=== PATIENT | female | born 1970 | race Caucasian/White ===

== ENCOUNTER → 2016-09-11 | Outpatient (CLI) | payer BC ==
[2016-09-11 14:44] LABS: BASOPHILS # (AUTO) 0.05 10*3/UL; BASOPHILS % (AUTO) 0.6 % (0-1)
[2016-09-11 14:47] LABS: BLOOD UREA NITROGEN 4 mg/dL (7-22); CALCIUM 9.5 mg/dL (8.7-10.7); EST GLOMERULAR FILTRATION > 60 (>60 ml/min/1.73m(2)); SERUM ALBUMIN 3.9 g/dL (3.5-4.8)
[2016-09-11 14:57] LABS: EOSINOPHILS # (AUTO) 0.04 10*3/UL; EOSINOPHILS % (AUTO) 0.5 % (0-8); HEMATOCRIT 41.6 % (37.0-47.0); HEMOGLOBIN 13.1 g/dL (12.0-16.0); LYMPHOCYTES # (AUTO) 1.63 10*3/uL; MEAN CORPUSCULAR HGB CONC 31.5 g/dL (33-37); MEAN CORPUSCULAR VOLUME 88.9 FL (81-99); MEAN PLATELET VOLUME 10.7 FL (7.4-12.2); MONOCYTES # (AUTO) 0.62 10*3/UL (0.3-0.8); NEUTROPHILS # (AUTO) 5.36 10*3/UL; NEUTROPHILS % (AUTO) 69.5 % (50-80); RED BLOOD COUNT 4.68 10^6/uL (4.20-5.40)
[2016-09-11 15:00] LABS: PLATELET MORPHOLOGY COMMENT NORMAL MORPHOLOGY (NORM); RBC MORPHOLOGY COMMENT NORMAL MORPHOLOGY (NORM); WBC MORPHOLOGY COMMENT NORMAL MORPHOLOGY (NORM)
== END ==
LOC: LAB 10:06
PROVIDERS: ATTEND Physician Assistant Medical
DX: Z01.812 Encounter for preprocedural laboratory examination (principal); M25.511 Pain in right shoulder; E03.9 Hypothyroidism, unspecified
CPT/HCPCS: 80053; 84443; 85025; 85610; 85730; 87641

== ENCOUNTER → 2016-10-23 | Outpatient (CLI) | payer BC ==
--- NOTE | 2016-10-24 10:30 | DI ---
US UP/LOW EXT VEINS U/L OR LTD,10/23/2016 4:35 PM: Clinical History: Right calf pain. Previous Exam: None at this facility. Findings: Multiple grayscale and color Doppler sonographic images are obtained of the deep veins of the right l ower extremity, and demonstrate complete coaptation upon graded compression throughout. There is normal coaptation upon graded compression. There is normal respiratory variation and augmentation. There is no evidence of echogenic thrombus. Impression: No evidence of deep venous thrombosis of the right lower extremity.
== END ==
LOC: US 16:34
PROVIDERS: ATTEND Physician Assistant Medical
DX: M79.661 Pain in right lower leg (principal)
CPT/HCPCS: 93971

== ENCOUNTER 2017-08-08 08:29 | Inpatient (IN) ==
[~2017-08-08 08:29] MED LIST: CefOXitin Inj 2 GM in Sodium Chloride 0.9% 100 ML IV ONE; LIDOCAINE W/ SODIUM BICARB 0.5 ML SYR ONE; LIDOCAINE W/ SODIUM BICARB 0.5 ML SYR SUBD ONE; Lactated Ringers 1,000 ML PRIMARY IV ONE; Sodium Chloride 0.9% 100 ML IV ONE
[2017-08-08] MEDS: Lactated Ringers 1,000 ML PRIMARY IV SCH ×2 (08:54→14:53)
[2017-08-08] MEDS ORDERED: PROPOFOL 10 MG/1 ML (200 MG/20 ML) VIAL IV ONE (09:17)
[2017-08-08] MEDS ORDERED: MIDAZOLAM 5 MG/1 ML ONE (09:18)
[2017-08-08] MEDS ORDERED: SCOPOLAMINE HYDROBROMIDE 1.5 MG - 1 EACH PATCH TRANSDERM ONE (09:18)
[2017-08-08] MEDS ORDERED: ONDANSETRON 4 MG/2 ML VIAL ONE (09:18)
[2017-08-08] MEDS ORDERED: KETAMINE 100 MG/1 ML - 5 ML ONE (09:18)
[2017-08-08] MEDS ORDERED: SUFENTANIL 50 MCG/1 ML ONE ×2 (09:18→11:25)
[2017-08-08] MEDS ORDERED: fentaNYL Inj 250 MCG/5 ML VIAL ONE (09:18)
[2017-08-08] MEDS ORDERED: ROCURONIUM 10 MG/1 ML - 5 ML VIAL IVP ONE ×2 (09:19→12:01)
[2017-08-08] MEDS ORDERED: DEXAMETHASONE PF 10 MG/1 ML VIAL ONE (09:19)
[2017-08-08] MEDS ORDERED: LIDOCAINE MPF 2% - 5 ML (20 MG/1 ML) ONE ×2 (09:21→13:05)
[2017-08-08] MEDS ORDERED: Sodium Chloride 0.9% vial 10 ML ONE (09:22)
[2017-08-08 09:26] LABS: Hematocrit [HCT] 38.8 % (37.0-47.0); Hemoglobin [HGB] 12.5 g/dL (12.0-16.0)
[2017-08-08 09:30] LABS: BILIRUBIN,URINE SMALL (NEG); CLARITY,URINE CLEAR (CLEAR); COLOR,URINE YELLOW (Y); GLUCOSE, URINE (UA) NEGATIVE (NEG); OCCULT BLOOD,URINE NEGATIVE (NEG); PH,URINE 6.5 (5.0-8.5); PROTEIN,URINE TRACE mg/dl (NEG); UROBILINOGEN,URINE 0.2 EU/dL (0.2)
[2017-08-08 09:33] LABS: URINE SAMPLE TYPE CLEAN CATCH URINE
[2017-08-08] MEDS ORDERED: Acetaminophen 1000mg Inj 1,000 MG/100 ML VIAL IV ONE (10:02)
[2017-08-08] MEDS ORDERED: IPRATROPIUM/ALBUTEROL SULFATE 3 ML NEB NEB ONE ×2 (10:02→10:05)
[2017-08-08] MEDS ORDERED: BUPivacaine Inj 0.25% PF - 10ml vial ONE (10:04)
[2017-08-08] MEDS ORDERED: Opium-Belladonna 60-16.2mg 1 EACH SUPP.RECT RECTAL ONE ×2 (10:04→11:45)
[2017-08-08] MEDS ORDERED: LIDOCAINE HCL 2 % 10 ML JELLY URO-JECT TOPICAL ONE ×2 (10:04→10:30)
[2017-08-08] MEDS ORDERED: SUGAMMADEX SODIUM 200 MG/2 ML VIAL IV ONE (11:54)
[2017-08-08] MEDS ORDERED: KETOROLAC 30 MG/1 ML VIAL ONE (12:05)
[2017-08-08] MEDS ORDERED: Lactated Ringers 1,000 ML PRIMARY IV ONE ×2 (12:36→14:21)
--- NOTE | 2017-08-08 13:38 | OB.OP.NOTE ---
Operative Report Surgeon: Basia Contact Officer: Karel Delgado MD Anesthesia Type: General Anesthesia Provider: Pablo Lopez CRNA Surgery Date: 08/08/17 Preoperative Diagnosis: MMR/Dysmenorrhea Post Endometrial Ablation Postoperative Diagnosis: Same with Dense Abdominal Adhesions Involving Small Bowel, Small Bowel Perforation Procedure: da Lee Hysterectomy/Bilateral Salpingectomy/Cystoscopy/Exploratory Laparotomy with Small Bowel Resection Estimated Blood Loss (mL): 40 Fluids: 3600 ml Complications: Small bowel perforation with the camera port trocar. Findings at Surgery: Normal appearing uterus. Tubes s/p BTL. Normal Ovaries. At cystoscopy, both ureters were visualized ejecting urine, indicating ureteral patency and function. The bladder was intact. Dense adhesions of small bowel and omentum to the anterior abdominal wall were encountered at the site of the camera port trocar. These were taken down laparoscopically at the start of the case, but adequate visualization of the affected bowel could not be obtained via laparoscopy. Mini laparotomy was performed at the conclusion of the hysterectomy to adequately assess the bowel for bowel injury. A through and through perforation of the small bowel was noted. Dr. Santamaria was consulted , and this portion of bowel was excised with primary anastomosis of the small bowel. Indications for the Procedure: MMR/Dysmenorrhea post ablation. Description of Procedure: See dictated operative report. Plan: Admit to inpatient unit for post op care.
[2017-08-08] MEDS ORDERED: Prochlorperazine Edisylate Inj 10mg/2ml vial IVP PRN (14:08)
[2017-08-08] MEDS ORDERED: NORMAL SALINE 10 ML SYRINGE FLUSH IVP PRN (14:08)
[2017-08-08] MEDS ORDERED: HYDROmorphone 2 MG/1 ML IVP PRN (14:08)
--- NOTE | 2017-08-08 14:11 | CRNA.PROGR ---
Anesthesia Recovery Phase I - Post Anesthesia Evaluation Patient's Condition on Arrival in Phase I: Stable Patient's Condition on Arrival in Phase II: Stable Pain Level: 0
--- NOTE | 2017-08-08 14:20 | CRNA.PROGR ---
Anesthesia Time - - Start date: 08/08/17 End date: 08/08/17 - Procedure/Recovery Time Anesthesia : Time In: 10:15 Anesthesia : Time Out: 14:07 Anesthesia : Total Time: 232 - Total Anesthesia Time Total Anesthesia Time (minutes): 232 - Other Weight: 112.945 kg Height: 5 ft 8 in Body Mass Index (BMI): 37.8 Physical Status: P2 Anesthesia Type: General Anesthesia : ET
--- NOTE | 2017-08-08 14:28 | DI ---
LAN, 08/08/2017 1:30 PM: Clinical History: Hysterectomy with subsequent bowel repair. No instrument count was obtained prior t o the bowel repair. Previous Exam: None at this facility. The patient is morbidly obese. This detracts from the overall quality and significantly limits the di agnostic quality of the exam with respect to fine detail structures. 2 films were initially obtained in the operating room and those films did not include the extreme left lateral margin of the pelvis. In addition, there was a radiopaque artifact over the epigastric region on one film. Therefore repeat views were performed. There are no soft tissue or bony abnormalities. A laparoscopic gastric band device is present. Bowel gas pattern, psoas margins, and flank stripes are normal. There is no free air or fluid. There are no abnormal radiodensities or evidence of retained metallic surgical instruments or sponges or needles. Reading: There is no evidence of a retained surgical instrument or sponge or needle.
--- NOTE | 2017-08-08 14:30 | GEN.OPNOTE ---
Operative Note Surgery Date: 08/08/17 Preoperative Diagnosis: Perforated bowel Postoperative Diagnosis: Perforated small bowel Procedure: Small bowel resection with primary anastomosis Surgeon: Edwin Santamaria MD Industrial Machinery Mechanic: Karel Delgado MD, Jeremy Flor MD Anesthesia Provider: Pablo Lopez CRNA Anesthesia Type: General Pathology: Small bowel sent Indications: This is a 38-year-old female who I been asked to see intraoperatively because of a small bowel perforation. Patient had dense adhesions of the small bowel up to the abdominal wall. The trocar was inadvertently placed into the small bowel with a through and through injury Findings: Through and through injury to the small bowel Operative Summary: I was asked to come and see the patient because of a small bowel perforation. Patient was having a da Lee hysterectomy. Patient had some dense adhesions of the small bowel up to the abdominal wall at the trocar site. Dr. Sorto was concerned about having an injury. He did convert to a small minilaparotomy. At this point is able to find a loop of bowel that had a through and through injury. Initially I was able to close him with interrupted 2-0 Vicryl sutures. At this point she had adhesions I gently took took down with Metzenbaum scissors. This freed up the bowel get a better look at it. The mesenteric was a little beat up. The suture lines were crossing each other and therefore was unsure whether this be an adequate primary repair. I decided do a small bowel resection of this point. I then made a small mesenteric defect and placed the TLC stapler across the best dividing the proximal and distal small bowel. I then clamped divided the mesentery and tied off with 3-0 Vicryl suture. I opened the antimesenteric border of the 2 limbs of small bowel. Placed the TLC stapler and and then fire fired it. The anastomosis. Completed the anastomosis with the TX a 60 stapler. Closed the mesenteric defect with 2-0 Vicryl simple sutures. Milk small bowel contents across anastomosis is no evidence of leak. We irrigated until clear. We inspected there is no active bleeding. At this point Dr. Sorto and Dr. Delgado close abdominal wall. Please see Dr. Sorto's operative notes for details. Procedure Codes - Surgical Procedures Primary Surgical Procedure: 32595 : Enterectomy, Resection Sm Bowel
[2017-08-08] MEDS ORDERED: HYDROmorphone 2 MG/1 ML ONE (14:45)
[2017-08-08] MEDS: CefOXitin Inj 1 GM in Sodium Chloride 0.9% 100 ML IV SCH ×2 (16:07→21:26)
[2017-08-08] MEDS: KETOROLAC 15 MG/1 ML VIAL IVP PRN ×2 (16:08→21:40)
[2017-08-08] MEDS: oxyCODONE-ACETAMINOPHEN 5-325 TAB PO PRN ×2 (18:58→23:01)
[2017-08-08] MEDS ORDERED: Sodium Chloride 0.9% 200 ML IV ONE (21:18)
[2017-08-08] MEDS: DOCUSATE 100 MG CAPSULE PO SCH (21:25)
[2017-08-09] MEDS: IBUPROFEN 800 MG TABLET PO PRN (02:16)
[2017-08-09] MEDS: oxyCODONE-ACETAMINOPHEN 5-325 TAB PO PRN ×2 (03:20→06:51)
[2017-08-09] MEDS: CefOXitin Inj 1 GM in Sodium Chloride 0.9% 100 ML IV SCH ×2 (03:20→08:28)
[2017-08-09] MEDS: KETOROLAC 15 MG/1 ML VIAL IVP PRN (04:09)
[2017-08-09 04:52] LABS: BASOPHILS # (AUTO) 0 10*3/UL; BASOPHILS % (AUTO) 0 % (0-1); EOSINOPHILS # (AUTO) 0 10*3/UL; EOSINOPHILS % (AUTO) 0 % (0-8); Hematocrit [HCT] 37.9 % (37.0-47.0); Hemoglobin [HGB] 12.2 g/dL (12.0-16.0); LYMPHOCYTES # (AUTO) 0.93 10*3/uL; MEAN CORPUSCULAR HGB CONC 32.2 g/dL (33-37); MEAN CORPUSCULAR VOLUME 87.1 FL (81-99); MEAN PLATELET VOLUME 10.6 FL (7.4-12.2); MONOCYTES # (AUTO) 0.72 10*3/UL (0.3-0.8); MONOCYTES % (AUTO) 7.4 % (5-15); NEUTROPHILS # (AUTO) 8.06 10*3/UL; NEUTROPHILS % (AUTO) 82.9 % (50-80); RED BLOOD COUNT 4.35 10^6/uL (4.20-5.40)
[2017-08-09 05:01] LABS: PLATELET MORPHOLOGY COMMENT NORMAL MORPHOLOGY (NORM); RBC MORPHOLOGY COMMENT NORMAL MORPHOLOGY (NORM); WBC MORPHOLOGY COMMENT NORMAL MORPHOLOGY (NORM)
[2017-08-09] MEDS: Ondansetron ODT Tab 8 MG TAB PO PRN (07:02)
--- NOTE | 2017-08-09 07:54 | PDOC(PROG) ---
Subjective Post Op Day: 1 Pain Management: PO Smith Catheter: Yes Flatus: No Diet: Clear Liquids Ambulating: Yes Concerns / Additional Information: The patient is feeling well this AM. No flatus yet. She is ambulating well. Waiting for smith to be removed. Pain control is marginal with PO, but pt. does not want a BAND LINING BANDER. White count and H/H normal this AM. AVSS. Assesstment / Plan Assessment / Plan: POD 1 s/p robotic hyst/BSO with small bowel perforation and resection. Awaiting return of bowel function. Ambulate aggressively.
[2017-08-09] MEDS: DOCUSATE 100 MG CAPSULE PO SCH ×2 (08:13→21:11)
[2017-08-09] MEDS ORDERED: NALOXONE 0.4 MG/1 ML VIAL IVP PRN (09:22)
[2017-08-09] MEDS: Sodium Chloride 0.9% 1,000 ML PRIMARY IV SCH (10:00)
[2017-08-09] MEDS: HYDROmorphone/PF/PCA 9 MG/30 ML IV SCH (10:01)
--- NOTE | 2017-08-09 12:11 | PDOC(PROG) ---
Subjective Post Op Day: postop day 1 Pain Management: Peripheral INSTRUMENT DESIGNER Veliz Catheter: No Flatus: No Diet: Clear Liquids Date and Time of Service: 08/09/2017 at 12:15 Interval History: Patient states that she is feeling okay had a rough night last night. She need to be placed on a INSTRUMENT DESIGNER pump. She is not passing flatus but tolerating liquid diet. She states she is hungry Objective : Data - Labs CBC and BMP: 08/09/17 04:10 - Vital Signs Vital Signs and I&O: Vital Signs - Last Taken Temperature 97 F 08/09/17 09:00 Pulse Rate 72 08/09/17 09:00 Respiratory Rate 16 08/09/17 11:00 Blood Pressure 105/62 08/09/17 09:00 Pulse Ox 99 08/09/17 11:00 Intake and Output (24hr x 4 totals) 08/07/17 08/08/17 08/09/17 08/10/17 05:59 05:59 05:59 05:59 Intake Total 7985 / 7985 148 / 148 Output Total 2890 / 2890 500 / 500 Balance 5095 / 5095 -352 / -352 Objective : Exam - General General Appearance: No Acute Distress, Cooperative - Eye Eye Exam: Normal Appearance, PERRL - Respiratory Respiratory Exam: Clear to Auscultation - Bilaterally, Breathing Non Labored - Cardiovascular Cardiovascular Exam: RRR - GI/Abdominal GI/Abdominal Exam: Non Distended (Patient is incisional pain. I do not hear any bowel sounds on today's exam), Soft Assessment and Plan - Patient Problems (1) Small bowel perforation Current Visit: Yes Status: Acute Code(s): K63.1 - Perforation of intestine ( nontraumatic) - Assessment / Plan Additional Assessment/Plan Details: Overall the patient is doing very well. Labs all look real good. I do not think she needs be on any more antibiotics. Continue the INSTRUMENT DESIGNER pump. Stay on a clear liquid diet. Will give her an incentive spirometer
[2017-08-09] MEDS ORDERED: ALBUTEROL SULFATE 2.5 MG/3 ML NEB PRN (19:00)
[2017-08-10] MEDS: Ondansetron ODT Tab 8 MG TAB PO PRN ×2 (02:05→10:44)
[2017-08-10] MEDS: HYDROmorphone/PF/PCA 9 MG/30 ML IV SCH (02:05)
[2017-08-10] MEDS: Famotidine Inj 20 MG in Normal Saline Flush 10 ML IVP SCH (09:01)
[2017-08-10] MEDS: DOCUSATE 100 MG CAPSULE PO SCH ×2 (09:01→21:31)
--- NOTE | 2017-08-10 09:14 | PDOC(PROG) ---
Subjective Post Op Day: 2 Pain Management: Peripheral HEALTH SAFETY ENGINEER Veliz Catheter: No Flatus: No Diet: Clear Liquids Ambulating: Yes Concerns / Additional Information: The patient is doing much better with her pain control. Encouraged ambulation as much as possible. Still no flatus, though she does feel rumblings. No vaginal bleeding. Objective - General General Appearance: POSITIVE: No Acute Distress Other General Details: AVSS - Abdomen Bowel Sounds: Present, Hypoactive Abdominal Wound Assessment: [place] Dressing Assesstment / Plan Assessment / Plan: POD 2. Awaiting return of bowel function. Ambulate aggressively and up to chair as much as possible. Diet per Dr. Santamaria.
--- NOTE | 2017-08-10 10:39 | PDOC(PROG) ---
Subjective Post Op Day: postop day 2 Pain Management: Peripheral FINE SANDER Flatus: No Diet: Clear Liquids Date and Time of Service: 08/10/2017 at 1040 Interval History: Patient states that she is doing fine having no complaints. She is tolerating clear liquids no nausea. She states she feels her tummy rumbling but that has not passed gas yet. She did take a shower today Objective : Data - Labs CBC and BMP: 08/09/17 04:10 - Vital Signs Vital Signs and I&O: Vital Signs - Last Taken Temperature 97 F 08/10/17 07:41 Pulse Rate 95 08/10/17 07:41 Respiratory Rate 15 08/10/17 09:00 Blood Pressure 126/78 08/10/17 07:41 Pulse Ox 91 08/10/17 07:41 Intake and Output (24hr x 4 totals) 08/08/17 08/09/17 08/10/17 08/11/17 05:59 05:59 05:59 05:59 Intake Total 7985 / 7985 1079 / 1079 940 / 940 Output Total 2890 / 2890 1900 / 1900 Balance 5095 / 5095 -821 / -821 940 / 940 Objective : Exam - General General Appearance: No Acute Distress, Cooperative - Respiratory Respiratory Exam: Clear to Auscultation - Bilaterally, Breathing Non Labored - Cardiovascular Cardiovascular Exam: RRR - GI/Abdominal GI/Abdominal Exam: Non Tender, Non Distended, Soft, Hypoactive Bowel Sounds Assessment and Plan - Patient Problems (1) Small bowel perforation Current Visit: Yes Status: Acute Code(s): K63.1 - Perforation of intestine ( nontraumatic) - Assessment / Plan Additional Assessment/Plan Details: At this point do think is okay to advance diet to full liquid diet. Will try to get her on oral pain medication. Patient normally takes Percocet 's. Will change his pain medication order to reflect this.
[2017-08-10] MEDS: KETOROLAC 15 MG/1 ML VIAL IVP PRN ×2 (10:44→17:39)
[2017-08-10] MEDS: oxyCODONE/APAP 10/325 Tab 1 EACH TAB PO PRN ×4 (10:58→23:50)
[2017-08-10] MEDS: Sodium Chloride 0.9% 1,000 ML PRIMARY IV SCH (13:13)
[2017-08-10] MEDS: NORMAL SALINE 10 ML SYRINGE FLUSH IVP PRN (17:39)
[2017-08-10] MEDS: HYDROmorphone 2 MG/1 ML IVP PRN ×3 (18:14→23:54)
[2017-08-11] MEDS: oxyCODONE/APAP 10/325 Tab 1 EACH TAB PO PRN ×6 (03:38→23:48)
--- NOTE | 2017-08-11 09:08 | PDOC(PROG) ---
Subjective Post Op Day: 3 Pain Management: PO Veliz Catheter: No Flatus: No Diet: Full Liquid Ambulating: Yes Concerns / Additional Information: Pt. is doing well from a pain standpoint on PO meds. She c/o night sweats last night. Discussed hypoestrogen state and offered ERT. She would like this. Still no flatus, but no N/V either. Pt. had an episode of dizziness in the shower this morning, but has been ambulating well. Objective - General General Appearance: POSITIVE: No Acute Distress - Abdomen Bowel Sounds: Hypoactive Abdominal Wound Assessment: Well Approximated, Alyssa Intact, Open to air Assesstment / Plan Assessment / Plan: POD 3. Still awaiting return of bowel function. Start ERT. Continue ambulating aggressively.
[2017-08-11] MEDS: Famotidine Inj 20 MG in Normal Saline Flush 10 ML IVP SCH (09:15)
[2017-08-11] MEDS: DOCUSATE 100 MG CAPSULE PO SCH ×2 (09:15→20:58)
[2017-08-11] MEDS: ESTROGENS,CONJUGATED 0.625 MG TABLET PO SCH (10:23)
--- NOTE | 2017-08-11 10:32 | PDOC(PROG) ---
Subjective Post Op Day: postop day 3 Flatus: No Diet: full liquid Date and Time of Service: 08/11/2017 at 10:30 Interval History: Patient states that she is doing well she is not nauseated has a little bit of heartburn is on Pepcid. She hasn't passed any flatus yet. Patient had some abdominal pain last night on the left lower quadrant but this seems to have resolved. Patient is being managed currently today just on oxycodone/ acetaminophen Objective : Data - Labs CBC and BMP: 08/09/17 04:10 - Vital Signs Vital Signs and I&O: Vital Signs - Last Taken Temperature 97.2 F 08/11/17 07:25 Pulse Rate 68 08/11/17 07:25 Respiratory Rate 19 08/11/17 07:25 Blood Pressure 111/69 08/11/17 07:25 Pulse Ox 93 08/11/17 07:25 Intake and Output (24hr x 4 totals) 08/09/17 08/10/17 08/11/17 08/12/17 05:59 05:59 05:59 05:59 Intake Total 7985 / 7985 1079 / 1079 2780 / 2780 950 / 950 Output Total 2890 / 2890 1900 / 1900 450 / 450 Balance 5095 / 5095 -821 / -821 2330 / 2330 950 / 950 Objective : Exam - General General Appearance: No Acute Distress, Cooperative - Respiratory Respiratory Exam: Clear to Auscultation - Bilaterally, Breathing Non Labored - Cardiovascular Cardiovascular Exam: RRR - GI/Abdominal GI/Abdominal Exam: Non Tender, Non Distended, Soft, Hypoactive Bowel Sounds Assessment and Plan - Patient Problems (1) Small bowel perforation Current Visit: Yes Status: Acute Code(s): K63.1 - Perforation of intestine ( nontraumatic) - Assessment / Plan Additional Assessment/Plan Details: Patient is tolerating full liquid diet therefore we'll keep her on a. Still awaiting return of bowel function. I do believe she still has her ileus: On. Will check a CBC basic metabolic panel and magnesium today. Will get flatplate and upright of the abdomen in the morning.
[2017-08-11 14:26] LABS: BASOPHILS # (AUTO) 0.02 10*3/UL; BASOPHILS % (AUTO) 0.1 % (0-1); EOSINOPHILS # (AUTO) 0.01 10*3/UL; EOSINOPHILS % (AUTO) 0.1 % (0-8); Hematocrit [HCT] 46.1 % (37.0-47.0); Hemoglobin [HGB] 15.3 g/dL (12.0-16.0); MEAN CORPUSCULAR HGB CONC 33.2 g/dL (33-37); MEAN CORPUSCULAR VOLUME 84.4 FL (81-99); MEAN PLATELET VOLUME 10.3 FL (7.4-12.2); MONOCYTES # (AUTO) 1.18 10*3/UL (0.3-0.8); MONOCYTES % (AUTO) 8.6 % (5-15); NEUTROPHILS # (AUTO) 11.65 10*3/UL; NEUTROPHILS % (AUTO) 84.5 % (50-80); RED BLOOD COUNT 5.46 10^6/uL (4.20-5.40)
[2017-08-11 14:49] LABS: PLATELET MORPHOLOGY COMMENT NORMAL MORPHOLOGY (NORM); RBC MORPHOLOGY COMMENT NORMAL MORPHOLOGY (NORM); WBC MORPHOLOGY COMMENT SEE COMMENTS (NORM)
[2017-08-11] MEDS: NORMAL SALINE 10 ML SYRINGE FLUSH IVP PRN (17:54)
[2017-08-11] MEDS: HYDROmorphone 2 MG/1 ML IVP PRN (17:55)
[2017-08-11] MEDS: MAG HYDROX/AL HYDROX/SIMETH 30 ML SUSP PO PRN (19:49)
[2017-08-11] MEDS ORDERED: Magnesium Sulfate 1gm (Premix) 1 GM/100 ML BAG IV ONE (20:12)
[2017-08-12] MEDS: oxyCODONE/APAP 10/325 Tab 1 EACH TAB PO PRN ×4 (04:04→20:52)
[2017-08-12 05:22] LABS: Hematocrit [HCT] 43.7 % (37.0-47.0); Hemoglobin [HGB] 14.8 g/dL (12.0-16.0); MEAN CORPUSCULAR HEMOGLOBIN 28.1 PG (27-31); MEAN CORPUSCULAR HGB CONC 33.9 g/dL (33-37); MEAN CORPUSCULAR VOLUME 83.1 FL (81-99); MEAN PLATELET VOLUME 10.4 FL (7.4-12.2); RED BLOOD COUNT 5.26 10^6/uL (4.20-5.40)
[2017-08-12 05:39] LABS: BAND NEUTROPHILS % 20 % (0-10); BASOPHILS % (MANUAL) 0 % (0-1); EOSINOPHILS % (MANUAL) 1 % (0-8); MONOCYTES % (MANUAL) 7 % (0-12); NEUTROPHILS % (MANUAL) 68 % (50-80); PLATELET MORPHOLOGY COMMENT NORMAL MORPHOLOGY (NORM); RBC MORPHOLOGY COMMENT NORMAL MORPHOLOGY (NORM); WBC MORPHOLOGY COMMENT NORMAL MORPHOLOGY (NORM)
[2017-08-12] MEDS: FAMOTIDINE 20 MG TABLET PO SCH (08:44)
[2017-08-12] MEDS: IBUPROFEN 800 MG TABLET PO PRN (08:45)
[2017-08-12] MEDS: DOCUSATE 100 MG CAPSULE PO SCH ×2 (08:45→20:52)
[2017-08-12] MEDS: ESTROGENS,CONJUGATED 0.625 MG TABLET PO SCH (08:45)
--- NOTE | 2017-08-12 08:46 | DI ---
CHEST X-RAY WITH ABDOMINAL SERIES, 08/12/2017 7:00 AM : Clinical History: Postoperative ileus. PA CHEST X-RAY: Previous Exam: None at this facility. On this view, the patient took a very shallow inspiration. There is no acute soft tissue or bony abno rmality. There is free air under both diaphragms. Heart size is normal. There is minimal bibasilar at electasis. Mediastinal structures are normal. There are no pulmonary nodules. Reading: There is free air under the diaphragms, presumably related to the recent abdominal surgery. ABDOMINAL SERIES: Previous Exam: None at this facility. KUB and upright abdomen films are submitted. The patient is status post laparoscopic gastric banding. Bowel gas pattern, psoas margins, and flank stripes are normal. There is free air under the diaphrag ms. There are no abnormal radiodensities. Readin. There is free air under the diaphragms presumably related to the recent surgery. Bowel gas patter n is normal. 2. Shallow inspiratory effort on the chest x-ray with minimal bibasilar atelectasis.
--- NOTE | 2017-08-12 08:50 | PDOC(PROG) ---
Subjective Post Op Day: po 4 Pain Management: PO Veliz Catheter: No Flatus: No Diet: full Date and Time of Service: 08/12/2017 Interval History: Patient states that she says abdominal pain. This is not a definite it's ever been better. Objective : Data - Labs CBC and BMP: 08/12/17 04:08 08/11/17 14:00 - Vital Signs Vital Signs and I&O: Vital Signs - Last Taken Temperature 97.5 F 08/12/17 08:17 Pulse Rate 83 08/12/17 08:17 Respiratory Rate 18 08/12/17 08:17 Blood Pressure 119/74 08/12/17 08:17 Pulse Ox 91 08/12/17 08:17 Intake and Output (24hr x 4 totals) 08/10/17 08/11/17 08/12/17 08/13/17 05:59 05:59 05:59 05:59 Intake Total 1079 / 1079 2780 / 2780 2550 / 2550 Output Total 1900 / 1900 450 / 450 325 / 325 Balance -821 / -821 2330 / 2330 2225 / 2225 Objective : Exam - General General Appearance: No Acute Distress, Cooperative - Respiratory Respiratory Exam: Clear to Auscultation - Bilaterally - GI/Abdominal GI/Abdominal Exam: Normal Bowel Sounds, Soft Additional GI/Abdominal Exam Details: Patient has a has tenderness on the left and right side but no rebound abdomen is soft Assessment and Plan - Patient Problems (1) Small bowel perforation Current Visit: Yes Status: Acute Code(s): K63.1 - Perforation of intestine ( nontraumatic) - Assessment / Plan Additional Assessment/Plan Details: X-rays show some free air but questions this free air from the surgery. Her white count continues increased along with her platelets and also the hemoglobin has increased. Question patient remains afebrile. She does have periods of tachycardic though. Currently is regular rhythm now. We'll continue to watch and monitor.
[2017-08-12] MEDS ORDERED: ESTROGENS,CONJUGATED 0.625 MG TABLET PO SCH (09:00)
[2017-08-12] MEDS ORDERED: CALCIUM CARBONATE 500 MG (TUMS) CHEWABLE TABLET PO PRN (12:55)
[2017-08-12] MEDS: MAG HYDROX/AL HYDROX/SIMETH 30 ML SUSP PO PRN (12:55)
[2017-08-12] MEDS: Ertapenem Inj 1 GM in Sodium Chloride 0.9% 100 ML IV SCH (15:22)
[2017-08-13] MEDS: oxyCODONE/APAP 10/325 Tab 1 EACH TAB PO PRN ×4 (02:14→19:27)
--- NOTE | 2017-08-13 08:06 | DI ---
CHEST X-RAY WITH ABDOMINAL SERIES, 08/13/2017 7:00 AM : Clinical History: Postoperative ileus. PA CHEST X-RAY: Previous Exam: 08/13/2017. The amount of free air under both diaphragms is unchanged from the prior exam. Heart size is normal. There is minimal atelectasis in the right lower lobe. Reading: There is free air under both diaphragms. The chest x-ray itself is unremarkable. ABDOMINAL SERIES: Previous Exam: 08/12/2017. KUB and upright abdomen films are submitted. As noted above, the amount of free air under the diaphra gms is unchanged from the prior exam. There is less stool in the descending colon than on the prior e xam and this would indicate the patient has had a bowel movement. Gas is present in both large and sm all bowel similar to the previous exam, but without evidence of an obstruction. This may represent a very mild ileus. Readin. There has been no change in the amount of free air in the abdomen since the prior exam. 2. The amount of gas in both large and small bowel is similar to the prior exam, but there is eviden ce that the patient has had a bowel movement. This may represent a very mild ileus.
[2017-08-13] MEDS: FAMOTIDINE 20 MG TABLET PO SCH (08:17)
[2017-08-13] MEDS: DOCUSATE 100 MG CAPSULE PO SCH ×2 (08:17→21:01)
[2017-08-13] MEDS: ESTROGENS,CONJUGATED 0.625 MG TABLET PO SCH (08:18)
[2017-08-13 09:03] LABS: Hematocrit [HCT] 39.1 % (37.0-47.0); Hemoglobin [HGB] 13.1 g/dL (12.0-16.0); MEAN CORPUSCULAR HEMOGLOBIN 27.6 PG (27-31); MEAN CORPUSCULAR HGB CONC 33.5 g/dL (33-37); MEAN CORPUSCULAR VOLUME 82.5 FL (81-99); MEAN PLATELET VOLUME 9.5 FL (7.4-12.2); RED BLOOD COUNT 4.74 10^6/uL (4.20-5.40)
[2017-08-13 09:16] LABS: PLATELET MORPHOLOGY COMMENT NORMAL MORPHOLOGY (NORM); RBC MORPHOLOGY COMMENT NORMAL MORPHOLOGY (NORM)
[2017-08-13 09:17] LABS: BAND NEUTROPHILS % 13 % (0-10); BASOPHILS % (MANUAL) 0 % (0-1); EOSINOPHILS % (MANUAL) 3 % (0-8); MONOCYTES % (MANUAL) 11 % (0-12); NEUTROPHILS % (MANUAL) 66 % (50-80); WBC MORPHOLOGY COMMENT SEE COMMENTS (NORM)
[2017-08-13 09:24] LABS: BLOOD UREA NITROGEN 21 mg/dL (7-22); BUN/CREATININE RATIO 26.25 (6-20); SERUM ALBUMIN 2.7 g/dL (3.5-4.8)
--- NOTE | 2017-08-13 10:41 | PDOC(PROG) ---
Subjective Post Op Day: 5 Pain Management: PO Veliz Catheter: No Flatus: Yes Diet: Full Liquids Ambulating: Yes Concerns / Additional Information: The patient reports feeling week, but having no pain. She has not passed any gas yet today, but did pass gas yesterday. She is ambulating without difficulty. Repeat plain films this am show no change from yesterday. The volume of free air is unchanged. Her WBC is normal this AM at 10. She remains afebrile with occasional mild tachycardia with normal BP. Objective - General General Appearance: POSITIVE: No Acute Distress - Abdomen Bowel Sounds: Present Abdominal Wound Assessment: [place] Intact Assesstment / Plan Assessment / Plan: POD 5. Slow return of bowel function, but with normal bowel sounds since yesterday and some flatus yesterday. Continue current managment.
--- NOTE | 2017-08-13 11:13 | PDOC(PROG) ---
Subjective Post Op Day: postoperative day 5 Pain Management: PO Veliz Catheter: No Flatus: Yes Diet: full liquid Date and Time of Service: 08/13/2017 at 11:15 Interval History: Patient states that she is passing gas. She feels better today. Objective : Data - Labs CBC and BMP: 08/13/17 09:00 08/13/17 09:00 - Vital Signs Vital Signs and I&O: Vital Signs - Last Taken Temperature 97 F 08/13/17 06:36 Pulse Rate 104 H 08/13/17 06:36 Respiratory Rate 17 08/13/17 06:36 Blood Pressure 107/75 08/13/17 06:36 Pulse Ox 92 08/13/17 06:36 Intake and Output (24hr x 4 totals) 08/11/17 08/12/17 08/13/17 08/14/17 05:59 05:59 05:59 05:59 Intake Total 2780 / 2780 2550 / 2550 1320 / 1320 200 / 200 Output Total 450 / 450 325 / 325 600 / 600 750 / 750 Balance 2330 / 2330 2225 / 2225 720 / 720 -550 / -550 Objective : Exam - General General Appearance: No Acute Distress, Cooperative - Respiratory Respiratory Exam: Clear to Auscultation - Bilaterally, Breathing Non Labored - Cardiovascular Cardiovascular Exam: RRR - GI/Abdominal GI/Abdominal Exam: Non Tender, Non Distended, Soft Assessment and Plan - Patient Problems (1) Small bowel perforation Current Visit: Yes Status: Acute Code(s): K63.1 - Perforation of intestine ( nontraumatic) - Assessment / Plan Additional Assessment/Plan Details: Patient status post small bowel resection. I think ileus is resolving. Will increase her diet. Give her prune juice milk of magnesia as need be she is oriented Colace. Since she had atelectasis on chest x-ray questions this is an early pneumonia. Will continue IV antibiotics
[2017-08-13] MEDS ORDERED: Methocarbamol Tab 500 MG TAB PO PRN (12:17)
[2017-08-13] MEDS: DULOXETINE 30 MG CAPSULE PO SCH (13:05)
[2017-08-13] MEDS: NORMAL SALINE 10 ML SYRINGE FLUSH IVP PRN (14:40)
[2017-08-13] MEDS: Ertapenem Inj 1 GM in Sodium Chloride 0.9% 100 ML IV SCH (14:40)
[2017-08-14] MEDS ORDERED: LEVOTHYROXINE 75 MCG TABLET PO SCH (05:30)
[2017-08-14] MEDS: oxyCODONE/APAP 10/325 Tab 1 EACH TAB PO PRN (06:03)
[2017-08-14] MEDS ORDERED: OMEPRAZOLE 20 MG CAPSULE PO SCH (07:00)
--- NOTE | 2017-08-14 08:13 | PDOC(PROG) ---
Subjective Post Op Day: 6 Pain Management: PO Veliz Catheter: No Flatus: Yes Diet: Regular Ambulating: Yes Concerns / Additional Information: Pt. reports passage of a large amount of flatus last night. She feels much better. She is hungry. No N/V. Ambulating well. Objective - General General Appearance: POSITIVE: No Acute Distress - Abdomen Bowel Sounds: Present Abdominal Wound Assessment: Alyssa Intact Assesstment / Plan Assessment / Plan: POD 6. Bowel function appears to have returned. Awaiting regular diet for breakfast. Possibly home later today. Dr. Santamaria will decide this.
[2017-08-14] MEDS: DULOXETINE 30 MG CAPSULE PO SCH (08:40)
[2017-08-14] MEDS: FAMOTIDINE 20 MG TABLET PO SCH (08:40)
[2017-08-14] MEDS: DOCUSATE 100 MG CAPSULE PO SCH (08:40)
[2017-08-14] MEDS: ESTROGENS,CONJUGATED 0.625 MG TABLET PO SCH (08:40)
[2017-08-14] MEDS: IBUPROFEN 800 MG TABLET PO PRN (08:41)
[2017-08-14 11:45] VITALS: BP 104/70; RESP 12; TEMP 98.3; O2SAT 90
--- NOTE | 2017-08-14 12:50 | DCSUMMARY ---
Discharge Summary Admit Date: 08/08/17 Discharge Date: 08/14/17 Admitting Diagnosis: dysmenorrhea status post endometrial ablation Discharge Diagnosis: Dysmenorrhea status post endometrial ablation. Perforated small bowel. Postop ileus Primary Surgery and Date: Da Lee laparoscopic hysterectomy. Small bowel resection Hospital Course: Patient: Hysterectomy laparoscopic via the did that she. There is a perforation of the small bowel. Patient had dense adhesions abdominal wall to the small bowel. She underwent a hysterectomy and then a small bowel resection. Postoperatively she actually very well. She did develop a postoperative ileus that took until day 4 to resolve. We Her an extra day to make certain that her bowel function was returning. She continued to pass gas. Her abdominal distention and bloating went away. She was tolerating diet. His Veliz no she had not had a bowel movement she can be discharged home since she had return of bowel function. Patient did have an x-ray that showed an ileus. Is also atelectasis of her base of the lungs. Patient did develop a slight elevated white count area she was started on Invanz for that. Her white count returned normal. Patient does not have any fever or chills or coughs. Exam - Vitals Vital Signs: Vital Signs Temperature 98.3 F Temperature Source Oral Pulse Rate [Apical] 98 Pulse Rate [Pulse Oximeter] 89 Pulse Rate 106 Respiratory Rate [Abdomen] 15 Respiratory Rate 12 Blood Pressure [Left Arm] 104/70 Blood Pressure 120/74 Pulse Ox 90 Oxygen Flow Rate [Abdomen] 2 Oxygen Flow Rate 2 Oxygen Delivery Method Room Air Height 5 ft 8 in Weight 253 lb 3.2 oz - General General Appearance: Cooperative - ENT ENT Exam: POSITIVE: Normal Exam - Respiratory Respiratory Exam: POSITIVE: Clear to Auscultation - Bilaterally - Cardiovascular Cardiovascular Exam: POSITIVE: RRR - GI/Abdominal GI/Abdominal Exam: POSITIVE: Normal Bowel Sounds, Non Tender, Non Distended, Soft Patient Problems - Patient Problem List (1) Small bowel perforation Current Visit: Yes Status: Acute Code(s): K63.1 - Perforation of intestine ( nontraumatic) Category: Medical
[2017-08-14] MEDS: Ertapenem Inj 1 GM in Sodium Chloride 0.9% 100 ML IV SCH (12:57)
[2017-08-14] MEDS: NORMAL SALINE 10 ML SYRINGE FLUSH IVP PRN (12:58)
== END 2017-08-14 14:27 | disposition home or self-care (01) | DRG 742 ==
LOC: OR 08:29 → MED/SURG 15:17
PROVIDERS: ADMIT Obstetrics & Gynecology; ATTEND Obstetrics & Gynecology

== ENCOUNTER 2017-08-20 10:15 | Inpatient (IN) ==
[2017-08-20] MEDS ORDERED: NORMAL SALINE 10 ML SYRINGE FLUSH IVP PRN ×4 (14:20→19:02)
[2017-08-20] MEDS ORDERED: LIDOCAINE W/ SODIUM BICARB 0.5 ML SYR SUBD PRN ×3 (14:20→16:51)
[2017-08-20] MEDS ORDERED: HYDROmorphone 2 MG/1 ML IVP PRN ×2 (14:23→16:51)
[2017-08-20] MEDS ORDERED: ONDANSETRON 4 MG/2 ML VIAL IVP PRN (14:23)
[2017-08-20] MEDS ORDERED: D5-1/2NS + 10mEq KCL 1,000 ML PRIMARY IV ONE (14:23)
[2017-08-20] MEDS ORDERED: ERTAPENEM 1 GM VIAL ONE (14:28)
[2017-08-20] MEDS ORDERED: Sodium Chloride 0.9% 100 ML IV ONE (14:29)
[2017-08-20] MEDS ORDERED: Ertapenem Inj 1 GM in Sodium Chloride 0.9% 100 ML IV SCH ×2 (14:30→22:00)
[2017-08-20] MEDS ORDERED: Lactated Ringers 1,000 ML PRIMARY IV SCH ×2 (14:30→17:00)
[2017-08-20] MEDS ORDERED: ROCURONIUM 10 MG/1 ML - 5 ML VIAL IVP ONE ×2 (14:51→16:41)
[2017-08-20] MEDS ORDERED: MIDAZOLAM 5 MG/1 ML ONE (14:52)
[2017-08-20] MEDS ORDERED: LIDOCAINE MPF 2% - 5 ML (20 MG/1 ML) ONE (14:52)
[2017-08-20] MEDS ORDERED: PROPOFOL 10 MG/1 ML (200 MG/20 ML) VIAL IV ONE (14:52)
[2017-08-20] MEDS ORDERED: fentaNYL Inj 250 MCG/5 ML VIAL ONE (14:52)
--- NOTE | 2017-08-20 14:59 | DI ---
CT Abdomen/Pelvis W Contrast,08/20/2017 9:49 AM: Clinical History: Perforation of intestine. Previous Exam: None at this facility. Findings: Multiple helically acquired CT images are obtained through the abdomen and pelvis following the oral and intravenous administration of contrast. The lung bases are clear. There are is free air noted in the subdiaphragmatic region as well as a few other scattered areas of free air throughout the mesentery. There is a gastric band noted involving the gastric cardia. There is a large 45 x 5 x 6 cm abscess involving the left paracolic gutter. This appears to have a sm all connection with a second abscess within the deep pelvis just superior to the urinary bladder and anterior to the rectum. There is also a abscess which is seen in the posterior dependent portion of the midabdomen at the lev el of the kidneys measuring 13 x 4 x 3 cm. The adjacent small bowel demonstrates a large amount of mu cosal thickening which may be postinflammatory change. There is contrast leaking into the peritoneal fat within the mid abdomen at the level of the umbilicu s from a loop of small bowel. This is walled off and demonstrate some mild rim enhancement consistent with an early forming abscess. This is consistent with an active small bowel leak. There is fluid co llection measures 7.1 x 3.3 x 4.3 cm. There are few prominent mesenteric lymph nodes. The deep pelvic abscess demonstrates connection with the vagina, but there is no clear visualization of the fistula. A few colonic diverticula are noted. The anastamosis is intact. The liver, spleen, pancreas, adrenals and kidneys are unremarkable. The gallbladder is not well seen. Impression: 1. 45 x 5 x 6 cm abscess along the left paracolic gutter. 2. Active extravasation of oral contrast at the level of the mid abdomen at the umbilicus. This is co nsistent with a new enteric perforation. There is a collection of extravasated oral contrast within t he mid abdomen with some air appears to be encapsulated, and measures 7.1 x 3.3 x 4.3 cm. This is dis tinct from the anastomosis site. 3. 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 4. 13 x 4 x 3 cm abscess within the deep midabdomen just anterior to the anterior pararenal fascia. 5. Large amount of free air or consistent with a perforation. 6. A thickened loop of small bowel within the midabdomen around the deep mid abdomen abscess. This co uld represent underlying primary enteritis or secondary inflammatory enteritis due to the adjacent ab scess.
[2017-08-20] MEDS ORDERED: BUPivacaine Inj 0.5% PF (5mg/ml) 10ml vial IV ONE (15:04)
[2017-08-20 15:15] LABS: BLOOD UREA NITROGEN 5 mg/dL (7-22); Hematocrit [HCT] 41.7 % (37.0-47.0); Hemoglobin [HGB] 13.9 g/dL (12.0-16.0); MEAN CORPUSCULAR HEMOGLOBIN 27.4 PG (27-31); MEAN CORPUSCULAR HGB CONC 33.3 g/dL (33-37); MEAN CORPUSCULAR VOLUME 82.1 FL (81-99); RED BLOOD COUNT 5.08 10^6/uL (4.20-5.40); SERUM ALBUMIN 3.2 g/dL (3.5-4.8)
[2017-08-20 15:37] LABS: PLATELET MORPHOLOGY COMMENT NORMAL MORPHOLOGY (NORM); RBC MORPHOLOGY COMMENT NORMAL MORPHOLOGY (NORM); WBC MORPHOLOGY COMMENT NORMAL MORPHOLOGY (NORM)
[2017-08-20 15:38] LABS: BAND NEUTROPHILS % 4 % (0-10); BASOPHILS % (MANUAL) 1 % (0-1); EOSINOPHILS % (MANUAL) 1 % (0-8); MONOCYTES % (MANUAL) 7 % (0-12); NEUTROPHILS % (MANUAL) 64 % (50-80)
[2017-08-20] MEDS ORDERED: KETAMINE 100 MG/1 ML - 5 ML ONE (16:01)
[2017-08-20] MEDS ORDERED: HYDROmorphone 2 MG/1 ML ONE ×4 (16:01→22:43)
[2017-08-20] MEDS ORDERED: Lactated Ringers 1,000 ML PRIMARY IV ONE ×2 (16:28→17:39)
[2017-08-20] MEDS ORDERED: PROMETHAZINE 25 MG/1 ML VIAL IM PRN (16:51)
[2017-08-20] MEDS ORDERED: fentaNYL Inj 100 MCG/2 ML VIAL IVP PRN (16:51)
[2017-08-20 17:34] LABS: Hematocrit [HCT] 38.8 % (37.0-47.0); Hemoglobin [HGB] 12.8 g/dL (12.0-16.0); MEAN CORPUSCULAR HEMOGLOBIN 27.2 PG (27-31); MEAN CORPUSCULAR VOLUME 82.6 FL (81-99); MEAN PLATELET VOLUME 8.8 FL (7.4-12.2); RED BLOOD COUNT 4.7 10^6/uL (4.20-5.40)
[2017-08-20] MEDS ORDERED: BUPivacaine Liposome/PF (Exparel) Inj 20ml vial INFIL ONE (18:03)
[2017-08-20] MEDS ORDERED: SUGAMMADEX SODIUM 200 MG/2 ML VIAL IV ONE (18:04)
[2017-08-20] MEDS ORDERED: ePHEDrine Inj 50 MG/ML AMP ONE (18:11)
[2017-08-20] MEDS ORDERED: Sodium Chloride 0.9% vial 10 ML ONE (18:11)
[2017-08-20] MEDS ORDERED: PHENYLEPHRINE 10,000 MCG/1 ML VIAL ONE (18:11)
[2017-08-20] MEDS ORDERED: NORMAL SALINE 10 ML IV ONE (18:13)
[2017-08-20] MEDS ORDERED: FUROSEMIDE 10 MG/1 ML - 4 ML ONE (18:27)
[2017-08-20] MEDS ORDERED: Acetaminophen 1000mg Inj 1,000 MG/100 ML VIAL IV PRN (19:02)
[2017-08-20] MEDS ORDERED: NALOXONE 0.4 MG/1 ML VIAL IVP PRN (19:06)
[2017-08-20] MEDS ORDERED: Hetastarch 6% + NS 500 ML IV ONE ×2 (19:10→19:13)
[2017-08-20] MEDS ORDERED: D5-1/2NS + 20mEq KCL 1,000 ML PRIMARY IV SCH (19:15)
[2017-08-20] MEDS ORDERED: fentaNYL Inj 100 MCG/2 ML VIAL ONE (19:22)
--- NOTE | 2017-08-20 19:38 | GEN.OPNOTE ---
Operative Note Surgery Date: 08/20/17 Preoperative Diagnosis: Perforated small bowel Postoperative Diagnosis: Perforated small bowel. Intra-abdominal abscess Procedure: Small bowel resection with primary anastomosis. Lysis of adhesion. Started surgery was 1553 and 1825 Surgeon: Edwin Santamaria MD Entertainment Reporter: Jeremy Flor MD Anesthesia Provider: Rashid Dolan CRNA Anesthesia Type: General Estimated Blood Loss (mL): 250 Fluids: 4 L of crystalloid Pathology: Small bowel sent Indications: This is a 47-year-old lady who 12 days ago when a laparoscopic the da Lee hysterectomy patient had a perforated small bowel at the time of surgery. We did find the through and through hole the small bowel to small bowel resection. Patient actually did well had a postop ileus that resolved. She is able to discharge home was having flatus and bowel movements daily. Patient states that on the way to her routine office visit started draining from the vaginal cuff. CT scan was done looking for a enterovaginal fistula the found the patient had multiple fluid collections consistent with abscesses there was free air. His felt that patient had a freely perforated bowel and that was not amenable to just simple drainage procedure. Therefore she was taken to surgery for exploratory laparotomy Findings: Patient is was brought into the operating room. Placed in supine position. Given general endotracheal anesthesia. Prepped draped sterile fashion. Timeout performed per protocols. I then infiltrated 0.5% Marcaine along the planned incision for intraoperative pain control and immediate postop pain. I opened up the previous skin incision extended this up to near the xiphoid and down near the umbilicus. This provided us adequate exposure. After opening abdominal cavity we did find the small bowel that was adherent up to the abdominal wall. These were gently taken down with both Metzenbaum scissors and blunt dissection. I then was able to encounter the abscess cavity in the left paracolic gutter and I can completely aspirated all the purulent fluid which was about 500 mL . I then worked down in the pelvis freeing up the pelvic abscesses and the smaller abscesses that were within the loops of small bowel. After getting all the abscesses opened and drained, I then worked on mobilizing the small bowel. Using blunt dissection and sharp dissection and completely free up the small bowel. We then ran the small bowel from the ligament of Treitz to the cecum. The anastomosis appeared to be intact with no leakage. We did find , more proximally , a small abscess cavity within the mesentery of the small bowel. This had a communication to the lumen of the small bowel. It was felt that the best thing to do was a small bowel resection to remove this area. I did ask Dr. Timothy Arriola another general surgeon to give us a second opinion. He did scrub in to give us a second opinion and he concurred within the bowel resection. I spent small mesenteric defects proximal to the leak and place the TLC linear stapler 75 divided by the small bowel. I then went to the more distal and of the same thing to the right small bowel. We clamped divided the mesentery. Tied off with 2-0 Vicryl sutures. I then opened up the antimesenteric border of the staple line placed the TLC 75 stapler and fired creating the anastomosis. Complete anastomosis with face 60 TXA stapler. This gives a good anastomosis. We then irrigated the abdominal cavity out until clear. There was no more purulent material found. We inspected the large bowel involved no evidence of injury to the to the entire colon. The stomach appeared to have no injuries. The previous just below band was in place. The G -tube was placed and confirmed in proper position by the surgical team. We then reinspected the small bowel bowel and there were a few serosal injuries but these did not extend into the muscularis . It was believed that putting a stitch in the serosal injury would actually cause more problems. We then irrigated again until clear. We closed the fascia with continuous running #1 Prolene stitch. We irrigated the subcutaneous tissue out. And closed the subcutaneous tissue with mala. Left four cap[address] order to help decrease the chance skin a wound infection. I then infiltrated 240 mg of Exoprel diluted out to the 100 mL into the subcutaneous tissue for postoperative pain control. Counts were correct. Patient transferred recovery room in stable condition. Procedure Codes - Surgical Procedures Primary Surgical Procedure: 07754 : Enterectomy, Resection Sm Bowel Secondary Surgical Procedure: 59431 : Enterolysis (There was extensive three- hour surgery to doing a lysis. Please and op note with billing to insurance company)
--- NOTE | 2017-08-20 20:17 | CRNA.PROGR ---
Anesthesia Recovery Phase I - Post Anesthesia Evaluation Patient's Condition on Arrival in Phase I: Fair (Pain managed, stable but tachy) Pain Level: 5
--- NOTE | 2017-08-20 20:18 | CRNA.PROGR ---
Anesthesia Time - - Start date: 08/20/17 End date: 08/20/17 - Procedure/Recovery Time Anesthesia : Time In: 15:29 Anesthesia : Time Out: 18:40 Anesthesia : Total Time: 191 - Total Anesthesia Time Total Anesthesia Time (minutes): 191 - Other Weight: 113.217 kg Height: 5 ft 8 in Body Mass Index (BMI): 37.9 Physical Status: P3 Anesthesia Type: General Anesthesia : ET (Bowel Resection Perf Bowel)
--- NOTE | 2017-08-20 21:54 | PDOC ---
HPI - History of Present Illness Date of Service: 08/20/17 Time of Service: 21:46 Chief Complaint: perforated small bowel History of Present Illness: Pt had surgery for perforated small bowel after a hysterectony on 08/08/2017. was D/C on 08/14/2017. was seen in office today for 1st post op visit. states having Daily BM but started draining stool from vaginia. CT shows a freely perforated small bowel with large abcesses. Based on CT it did not look to be a fistulia. Past Medical History Medical History: RA, fibromyalgia,chronic pain Surgical History: open cholecystectomy,gastric band, abdominal plasty, multible hernia repairs,mesh removal, Laprascopic hysterectomy,small bowel repair Tobacco Use: Never Smoker In the Past 12 Months, Have Used or Abuse Any of the Following Substance: None Medication / Allergies Home Medications: Home Medications 3 Medication Instructions Recorded Confirmed Type Methocarbamol 500 mg PO QHS PRN tab 04/25/16 08/20/17 History Lansoprazole 1 cap PO DAILY cap 09/19/16 08/20/17 History Oxycodone HCl/Acetaminophen 1 tab PO Q4H tab 09/19/16 08/20/17 History [Oxycodone-Acetaminophen 10-325] Levothyroxine Sodium 75 mcg ORAL QD #30 tab 01/11/17 08/20/17 History Acyclovir [Zovirax] 400 mg ORAL BID #60 tab 01/28/17 08/20/17 Rx albuterol sulfate HFA 90 2 puff INH QID #18 g 05/02/17 08/20/17 Rx mcg/actuation aerosol inhaler duloxetine 30 mg capsule,delayed 30 mg PO QDAY 06/25/17 08/20/17 History release mometasone-formoterol HFA 200 2 puff INH BID #8.8 g 07/23/17 08/20/17 Rx mcg-5 mcg/actuation aerosol inhaler oxyCODONE/APAP 10/325 Tab 1 ea PO Q4H PRN #60 tab 08/14/17 08/20/17 Rx [Percocet 10/325 Tab] Allergies/Adverse Reactions: Allergies 3 Allergy/AdvReac Type Severity Reaction Status Date / Time clarithromycin [From Biaxin] Allergy VOMITING Verified 08/20/17 14:36 codeine Allergy VOMITING Verified 08/20/17 14:36 codeine phosphate Allergy VOMITING Verified 08/20/17 14:36 [From Tylenol-Codeine #3] Review of Systems - Constitutional Constitutional: REPORTS: General Health Fair, Weakness - Integumentary Integumentary: REPORTS: Superficial Wound - Respiratory Respiratory: REPORTS: Negative System Review - Cardiovascular Cardiovascular: REPORTS: Negative System Review - Gastrointestinal Gastrointestinal / Abdominal: REPORTS: Abdominal Pain - Genitourinary Genitourinary: REPORTS: Negative System Review Exam - Vitals Vital Signs: Vital Signs Temperature 97.4 F Temperature Source Oral Pulse Rate [Pulse Oximeter] 97 Pulse Rate 121 Respiratory Rate 23 Blood Pressure [Right Arm] 125/79 Blood Pressure 104/70 Pulse Ox 98 Oxygen Flow Rate 4L NC Oxygen Delivery Method Room Air Height 5 ft 8 in Weight 249 lb 9.6 oz - General General Appearance: Cooperative, Mild Distress - Head Head Exam: Normal Inspection - Eye Eye Exam: POSITIVE: PERRL, EOMI - Neck Neck Exam: Full ROM, No Tenderness - Respiratory Respiratory Exam: POSITIVE: Clear to Auscultation - Bilaterally, Breathing Non Labored - Cardiovascular Cardiovascular Exam: POSITIVE: No Murmur, No Rubs, Tachycardia - GI/Abdominal GI/Abdominal Exam: POSITIVE: Normal Bowel Sounds, Non Distended, Soft, No Hepatomegaly, No Splenomegaly - Rectal Rectal Exam: POSITIVE: Deferred - Exam: POSITIVE: Vaginal Discharge - Extremities Extremities Exam: POSITIVE: Normal Capillary Refill, Pedal Edema (brown discoloration of right lower leg) Results - Labs CBC and BMP: 08/20/17 17:30 08/20/17 15:03 Assessment and Plan - Patient Problems (1) Perforated small intestine Current Visit: Yes Status: Acute Code(s): K63.1 - Perforation of intestine ( nontraumatic) (2) Small bowel perforation Current Visit: No Status: Acute Code(s): K63.1 - Perforation of intestine ( nontraumatic) - Assessment / Plan Additional Assessment/Plan Details: since the radiogist doesnt believe percutaneous drainage would not help the pt will take to OR for explorItory surgery and small bowel resection. Risk discused.
[2017-08-20] MEDS ORDERED: ALBUTEROL SULFATE 2.5 MG/3 ML NEB PRN (21:58)
--- NOTE | 2017-08-20 22:18 | CONSULT ---
Consult Note - Consult Consult Date: 08/20/17 Primary Care Provider: Josie Kimball PA-C HPI - History of Present Illness Date of Service: 08/20/17 Time of Service: 22:15 Chief Complaint: Abdominal pain History of Present Illness: This very pleasant 47-year-old female with underlying history of hypothyroidism , asthma, fibromyalgia, who presented here in follow-up today apparently in the surgery clinic for a recent hysterectomy, endometrial ablation, and small bowel perforation status post resection with reanastomosis is my understanding. She started having abdominal pain, and apparently was draining stool through her vagina. She had a CT scan done emergently and was found to have a large intra- abdominal abscess along with a new small bowel perforation. She was taken emergently to surgery, where the abscesses were drained and washed out, she had lysis of adhesions, and small bowel resection with reanastomosis. The patient reportedly got 5900 MLS of normal saline and Hextend in the operating suite. She comes to the ICU with hypotension, tachycardia, and complaints be mostly of abdominal pain. She is still groggy from anesthesia and pain medications. She has an NG tube in place that is draining gastric contents at this time. She denies any chest pain or shortness of breath. Her history is very limited due to her postoperative situation. Her daughters, present at bedside stated that she had some abdominal pain earlier today. She is not had any complaints of shortness of breath that I'm aware of lately. Past Medical History Medical History: 1. Reportedly, rheumatoid arthritis, although I'm not sure the validity of this and the patient is too close to her surgery time to really provide a good history in this regard. 2. fibromyalgia. 3. Hypothyroidism. 4. Chronic pain syndrome. 5. Asthma Surgical History: open cholecystectomy,gastric band, abdominal plasty, multible hernia repairs,mesh removal, Laprascopic hysterectomy,small bowel repair Pertinent Family History: Significant for breast cancer, cervical cancer, diabetes. Past Social History: Does not smoke or drink. Lives in [place], [place]. Has 2 daughters, described as healthy. . Tobacco Use: Never Smoker In the Past 12 Months, Have Used or Abuse Any of the Following Substance: None Alcohol Use: None Review of Systems - Review of Systems ROS Unobtainable: Due to Condition (The patient was postoperative, still tachycardic, hypotensive, and still groggy from medications and cannot provide an adequate review systems) Medication / Allergies Home Medications: Home Medications 3 Medication Instructions Recorded Confirmed Type Methocarbamol 500 mg PO QHS PRN tab 04/25/16 08/20/17 History Lansoprazole 1 cap PO DAILY cap 09/19/16 08/20/17 History Oxycodone HCl/Acetaminophen 1 tab PO Q4H tab 09/19/16 08/20/17 History [Oxycodone-Acetaminophen 10-325] Levothyroxine Sodium 75 mcg ORAL QD #30 tab 01/11/17 08/20/17 History Acyclovir [Zovirax] 400 mg ORAL BID #60 tab 01/28/17 08/20/17 Rx albuterol sulfate HFA 90 2 puff INH QID #18 g 05/02/17 08/20/17 Rx mcg/actuation aerosol inhaler duloxetine 30 mg capsule,delayed 30 mg PO QDAY 06/25/17 08/20/17 History release mometasone-formoterol HFA 200 2 puff INH BID #8.8 g 07/23/17 08/20/17 Rx mcg-5 mcg/actuation aerosol inhaler oxyCODONE/APAP 10/325 Tab 1 ea PO Q4H PRN #60 tab 08/14/17 08/20/17 Rx [Percocet 10/325 Tab] Allergies/Adverse Reactions: Allergies 3 Allergy/AdvReac Type Severity Reaction Status Date / Time clarithromycin [From Biaxin] Allergy VOMITING Verified 08/20/17 22:00 codeine Allergy VOMITING Verified 08/20/17 22:00 codeine phosphate Allergy VOMITING Verified 08/20/17 22:00 [From Tylenol-Codeine #3] Exam - Vitals Vital Signs: Vital Signs Temperature 97.4 F Temperature Source Oral Pulse Rate [Pulse Oximeter] 97 Pulse Rate 121 Respiratory Rate 23 Blood Pressure [Right Arm] 125/79 Blood Pressure 104/70 Pulse Ox 98 Oxygen Flow Rate 4L NC Oxygen Delivery Method Room Air Height 5 ft 8 in Weight 249 lb 9.6 oz - General General Appearance: No Acute Distress, Cooperative - Head Head Exam: Normal Inspection, Normocephalic, Atraumatic - Eye Eye Exam: POSITIVE: No Scleral Icterus - ENT ENT Exam: POSITIVE: Mucous Membranes Dry - Respiratory Respiratory Exam: POSITIVE: Breathing Non Labored, Decreased Breath Sounds - Cardiovascular Cardiovascular Exam: POSITIVE: No Murmur, No Clicks, No Gallops, No Rubs, Tachycardia, No JVD - GI/Abdominal GI/Abdominal Exam: POSITIVE: Non Distended, Soft Additional GI/Abdominal Exam Details: Large midline incision is dressed, dressing is clean, dry, intact. She has some excoriations on her skin that might of been related to prior tape exposure? - Rectal Rectal Exam: POSITIVE: Deferred - External Exam: POSITIVE: Deferred Exam: POSITIVE: Veliz Catheter in Place (Urine appeared clear.) - Extremities Extremities Exam: POSITIVE: No Clubbing Present, No Cyanosis Present, +1 Edema ( Patient has some edema present,) - Neurological Neurological Exam: POSITIVE: Alert, Oriented x 3, No Facial Droop, Speech Intact / Clear - Integumentary Additional Integumentary Exam Details: Somewhat clammy and extremities, - Central Line Examination Central Line Present on Admission: No Results - Labs CBC and BMP: 08/20/17 17:30 08/20/17 15:03 Additional Lab Results: Laboratory Results 08/20/17 08/20/17 08/20/17 Range/Units 15:03 15:03 16:40 WBC 13.65 H (4.8-10.8) 10^3/uL RBC 5.08 (4.20-5.40) 10^6/uL Hgb 13.9 (12.0-16.0) g/dL Hct 41.7 (37.0-47.0) % MCV 82.1 (81-99) FL MCH 27.4 (27-31) PG MCHC 33.3 (33-37) g/dL RDW Std Deviation 45.6 (39-50) fL RDW Coeff of Anne 15.3 H (11.5-14.5) % Plt Count 450 H (140-350) 10*3/uL MPV 9.0 (7.4-12.2) FL Neutrophils % (Manual) 64 (50-80) % Band Neutrophils % 4 (0-10) % Lymphocytes % (Manual) 23 (10-50) % Monocytes % (Manual) 7 (0-12) % Eosinophils % (Manual) 1 (0-8) % Basophils % (Manual) 1 (0-1) % Metamyelocytes % Not Reportable Myelocytes % Not Reportable Promyelocytes % Not Reportable Blast Cells Not Reportable WBC Morphology Comment Normal morphology (NORM) Plt Morphology Comment Normal morphology (NORM) RBC Morph Comment Normal morphology (NORM) Sodium 133 L (135-145) meq/L Potassium 3.0 L (3.8-5.2) meq/L Chloride 91 L (98-112) meq/L Carbon Dioxide 27 (23-33) meq/L Anion Gap 15 (5-20) BUN 5 L (7-22) mg/dL Creatinine 0.4 L (0.50-1.20) mg/dL Estimated GFR > 60 (>60 ml/min/1.73m(2)) BUN/Creatinine Ratio 12.50 (6-20) Glucose 103 (78-110) mg/dL Calculated Osmolality 272.0 (267-292) mOsm/kg Calcium 8.2 L (8.7-10.7) mg/dL Total Bilirubin 0.4 (0.3-1.2) mg/dL AST 24 (8-39) IU/L ALT 28 (9-52) IU/L Alkaline Phosphatase 116 (38-126) IU/L Total Protein 6.3 (6.1-8.0) g/dL Albumin 3.2 L (3.5-4.8) g/dL Globulin 3.1 (2.50-4.10) g/dL Albumin/Globulin Ratio 1.00 L (1.3-2.0) mg/g Blood Type O POSITIVE Antibody Screen Negative 08/20/17 Range/Units 17:30 WBC 33.18 H* (4.8-10.8) 10^3/uL RBC 4.70 (4.20-5.40) 10^6/uL Hgb 12.8 (12.0-16.0) g/dL Hct 38.8 (37.0-47.0) % MCV 82.6 (81-99) FL MCH 27.2 (27-31) PG MCHC 33.0 (33-37) g/dL RDW Std Deviation 45.9 (39-50) fL RDW Coeff of Anne 15.3 H (11.5-14.5) % Plt Count 551 H (140-350) 10*3/uL MPV 8.8 (7.4-12.2) FL Neutrophils % (Manual) (50-80) % Band Neutrophils % (0-10) % Lymphocytes % (Manual) (10-50) % Monocytes % (Manual) (0-12) % Eosinophils % (Manual) (0-8) % Basophils % (Manual) (0-1) % Metamyelocytes % Myelocytes % Promyelocytes % Blast Cells WBC Morphology Comment (NORM) Plt Morphology Comment (NORM) RBC Morph Comment (NORM) Sodium (135-145) meq/L Potassium (3.8-5.2) meq/L Chloride (98-112) meq/L Carbon Dioxide (23-33) meq/L Anion Gap (5-20) BUN (7-22) mg/dL Creatinine (0.50-1.20) mg/dL Estimated GFR (>60 ml/min/1.73m(2)) BUN/Creatinine Ratio (6-20) Glucose (78-110) mg/dL Calculated Osmolality (267-292) mOsm/kg Calcium (8.7-10.7) mg/dL Total Bilirubin (0.3-1.2) mg/dL AST (8-39) IU/L ALT (9-52) IU/L Alkaline Phosphatase (38-126) IU/L Total Protein (6.1-8.0) g/dL Albumin (3.5-4.8) g/dL Globulin (2.50-4.10) g/dL Albumin/Globulin Ratio (1.3-2.0) mg/g Blood Type Antibody Screen - Imaging Status: Image Reviewed by Me (I looked at the CT scan of the abdomen and pelvis. I also reviewed the radiology report that showed that there were abscesses present and small bowel perforation.) Assessment and Plan - Patient Problems (1) Sepsis Current Visit: Yes Status: Acute Code(s): A41.9 - Sepsis, unspecified organism Qualifiers: Sepsis type: sepsis due to unspecified organism Qualified Code(s): A41.9 - Sepsis, unspecified organism (2) Intra-abdominal abscess post-procedure Current Visit: Yes Status: Acute Code(s): T81.4XXA - Infection following a procedure, initial encounter; K65.1 - Peritoneal abscess Qualifiers: Encounter type: initial encounter Qualified Code(s): T81.4XXA - Infection following a procedure, initial encounter; K65.1 - Peritoneal abscess (3) Small bowel perforation Current Visit: Yes Status: Acute Code(s): K63.1 - Perforation of intestine ( nontraumatic) (4) Fibromyalgia Current Visit: Yes Status: Chronic Onset Date: 02/08/16 Code(s): M79.7 - Fibromyalgia (5) Asthma Current Visit: No Status: Chronic Qualifiers: Asthma severity: mild Asthma persistence: intermittent Asthma complication type: uncomplicated Qualified Code(s): J45.20 - Mild intermittent asthma, uncomplicated (6) Hypothyroidism Current Visit: Yes Status: Chronic Qualifiers: Hypothyroidism type: acquired Qualified Code(s): E03.9 - Hypothyroidism, unspecified - Assessment / Plan Additional Assessment/Plan Details: First and foremost, thank you for this consult, will be the hospitalists pleasure to continue to follow this patient during her hospital stay. In terms of the patient's sepsis, I think we should do a few things, we should go ahead and do blood cultures although I think they will be negative this is despite antibiotics being given as likely the abscesses are going to be polymicrobial, but it may be good to know if anything got into the blood. Continue Invanz. I will go ahead and repeat labs now, including CMP, CBC with differential, a lactic acid, magnesium level, and replace electrolytes and adjust fluids as necessary. She is quite cool in her lower extremities and in her upper extremities, and seems somewhat clamped down, this could be related to sepsis. If we need to continue with crystalloids, we may need to consider central line placement for possible vasopressor support if her blood pressures dropped and/or her mean arterial pressures do not maintain above 65. She will be nothing by mouth for some time, and going to go ahead and replace her Synthroid IV. I will do this at half the dose of her by mouth dose. I will write for some albuterol when necessary. If she has extended time without by mouth intake, I think we should go ahead and start some nutrition for her in the form of TPN. We'll discuss with surgery tomorrow on that regard. See orders for further components plan of care.
[2017-08-20 22:26] LABS: Hematocrit [HCT] 38.3 % (37.0-47.0); Hemoglobin [HGB] 12.7 g/dL (12.0-16.0); MEAN CORPUSCULAR HEMOGLOBIN 27.7 PG (27-31); MEAN CORPUSCULAR HGB CONC 33.2 g/dL (33-37); MEAN CORPUSCULAR VOLUME 83.4 FL (81-99); MEAN PLATELET VOLUME 9.1 FL (7.4-12.2); RED BLOOD COUNT 4.59 10^6/uL (4.20-5.40)
[2017-08-20] MEDS ORDERED: Sodium Chloride 0.9% 250 ML IV ONE (22:32)
[2017-08-20 22:37] LABS: PLATELET MORPHOLOGY COMMENT NORMAL MORPHOLOGY (NORM); RBC MORPHOLOGY COMMENT NORMAL MORPHOLOGY (NORM); WBC MORPHOLOGY COMMENT NORMAL MORPHOLOGY (NORM)
[2017-08-20 22:38] LABS: BAND NEUTROPHILS % 12 % (0-10); BASOPHILS % (MANUAL) 0 % (0-1); EOSINOPHILS % (MANUAL) 0 % (0-8); MONOCYTES % (MANUAL) 4 % (0-12); NEUTROPHILS % (MANUAL) 77 % (50-80)
[2017-08-20 22:39] LABS: BLOOD UREA NITROGEN 7 mg/dL (7-22); BUN/CREATININE RATIO 11.66 (6-20); SERUM ALBUMIN 1.8 g/dL (3.5-4.8)
[2017-08-20] MEDS: HEPARIN 5000 UNIT/1 ML SUBCUT SCH (22:39)
[2017-08-20] MEDS: HYDROmorphone/PF/PCA 9 MG/30 ML IV SCH (22:40)
[2017-08-20] MEDS ORDERED: HYDROmorphone 2 MG/1 ML IVP ONE (22:44)
[2017-08-20] MEDS ORDERED: Magnesium Sulfate 2gm (Premix) 2 GM/50 ML BAG IV ONE (23:07)
[2017-08-20] MEDS ORDERED: CALCIUM GLUCONATE IV ONE (23:10)
[2017-08-20] MEDS ORDERED: D5W IV ONE (23:10)
[2017-08-20] MEDS ORDERED: CALCIUM GLUCONATE 100 MG/1 ML - 10 ML ONE (23:51)
[2017-08-20] MEDS ORDERED: Sodium Chloride 0.9% 500 ML PRIMARY IV ONE (23:59)
[2017-08-21] MEDS ORDERED: Sodium Chl 0.45% 500 ML PRIMARY IV ONE (00:04)
[2017-08-21] MEDS: HEPARIN 5000 UNIT/1 ML SUBCUT SCH ×3 (05:31→22:27)
[2017-08-21 05:33] LABS: Hematocrit [HCT] 37.3 % (37.0-47.0); Hemoglobin [HGB] 12.7 g/dL (12.0-16.0); MEAN CORPUSCULAR HEMOGLOBIN 28.4 PG (27-31); MEAN CORPUSCULAR VOLUME 83.4 FL (81-99); MEAN PLATELET VOLUME 9.3 FL (7.4-12.2); RED BLOOD COUNT 4.47 10^6/uL (4.20-5.40)
--- NOTE | 2017-08-21 05:54 | CD ---
[facility] Interpretive Statements [email or web address]
[2017-08-21 05:56] LABS: BLOOD UREA NITROGEN 7 mg/dL (7-22); BUN/CREATININE RATIO 11.66 (6-20); SERUM ALBUMIN 1.8 g/dL (3.5-4.8)
[2017-08-21 06:44] LABS: BAND NEUTROPHILS % 19 % (0-10); BASOPHILS % (MANUAL) 0 % (0-1); EOSINOPHILS % (MANUAL) 0 % (0-8); MONOCYTES % (MANUAL) 1 % (0-12); NEUTROPHILS % (MANUAL) 75 % (50-80); PLATELET MORPHOLOGY COMMENT SEE COMMENTS (NORM); RBC MORPHOLOGY COMMENT NORMAL MORPHOLOGY (NORM); WBC MORPHOLOGY COMMENT NORMAL MORPHOLOGY (NORM)
--- NOTE | 2017-08-21 08:54 | PDOC(PROG) ---
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 Objective : Data - Labs CBC and BMP: 08/21/17 05:16 08/21/17 05:16 - Vital Signs Vital Signs and I&O: Vital Signs - Last Taken Temperature 97.9 F 08/21/17 07:00 Pulse Rate 93 08/21/17 07:00 Respiratory Rate 18 08/21/17 07:00 Blood Pressure 119/63 08/21/17 07:00 Pulse Ox 94 08/21/17 07:00 Intake and Output (24hr x 4 totals) 08/19/17 08/20/17 08/21/17 08/22/17 05:59 05:59 05:59 05:59 Intake Total 6412 / 6412 Output Total 1030 / 1030 Balance 5382 / 5382 Objective : Exam - General General Appearance: No Acute Distress, Cooperative - Eye Eye Exam: PERRL, EOMI - Respiratory Respiratory Exam: Clear to Auscultation - Bilaterally, Breathing Non Labored - Cardiovascular Cardiovascular Exam: RRR - GI/Abdominal GI/Abdominal Exam: Non Tender, Non Distended, Soft Assessment and Plan - Patient Problems (1) Sepsis Current Visit: Yes Status: Acute Code(s): A41.9 - Sepsis, unspecified organism Qualifiers: Sepsis type: sepsis due to unspecified organism Qualified Code(s): A41.9 - Sepsis, unspecified organism (2) Small bowel perforation Current Visit: Yes Status: Acute Code(s): K63.1 - Perforation of intestine ( nontraumatic) - Assessment / Plan Additional Assessment/Plan Details: Patient is hemodynamically stable. White count is elevated but this is not unexpected. We'll continue the Invanz. Await results of blood cultures. Will start ice chips. Patient okay to chew gum and suck on hard candy. Leaving NG tube for another 24 hours
[2017-08-21] MEDS: LEVOTHYROXINE IVP SCH (10:10)
[2017-08-21] MEDS: SODIUM CHLORIDE 0.9% IVP SCH (10:10)
[2017-08-21] MEDS: Ertapenem Inj 1 GM in Sodium Chloride 0.9% 100 ML IV SCH ×2 (10:35→18:17)
[2017-08-21] MEDS: Pantoprazole Inj 40 MG in Normal Saline Flush 10 ML IVP SCH (10:42)
[2017-08-21] MEDS ORDERED: Lidocaine 1% 10 MG/ML - 20 ML VIAL SUBCUT PRN (11:11)
[2017-08-21] MEDS ORDERED: LIDOCAINE 2% 20 MG/ML - 20 ML VIAL SUBCUT PRN (11:11)
[2017-08-21] MEDS ORDERED: HEPARIN 500 UNIT/5 ML SYRINGE FOR CENTRAL LINE IVP PRN (11:11)
--- NOTE | 2017-08-21 11:13 | CRNA.PROGR ---
Anesthesia Note - Progress Notes Anesthesia Progress Note: She is sitting up in bed, daughter at the bedside. We discussed her anesthetic course and transition to inpatient care. She has no questions or concerns regard her anesthetic course. He pain has been controlled and her VS are stable at this time. Vital Signs (24 hrs) Temp Pulse Pulse Resp Resp BP BP 08/21/17 10:00 98.3 F 115 H 16 08/21/17 08:00 105 H 18 08/21/17 07:00 97.9 F 109 H 93 18 08/21/17 06:00 112 H 16 08/21/17 05:33 08/21/17 05:00 98.1 F 112 H 16 113/79 08/21/17 04:00 111 H 18 08/21/17 03:39 20 08/21/17 03:00 112 H 110 H 18 103/82 08/21/17 02:00 107 H 18 103/74 08/21/17 01:39 22 08/21/17 01:00 97.5 F 104 H 20 97/79 08/21/17 00:00 106 H 16 109/44 08/20/17 23:00 114 H 118 H 18 106/68 08/20/17 22:41 104 H 20 08/20/17 22:38 116 H 20 111/73 08/20/17 21:38 111 H 22 109/74 08/20/17 21:00 97.6 F 116 H 20 87/76 08/20/17 20:41 117 H 14 08/20/17 20:25 97.4 F 121 H 23 104/70 08/20/17 20:20 119 H 20 98/56 08/20/17 20:15 115 H 19 98/63 18 20:10 115 H 15 104/70 18 20:05 117 H 19 99/54 08/20/17 19:50 97.7 F 116 H 12 103/72 08/20/17 19:40 124 H 10 L 99/71 08/20/17 19:30 121 H 10 L 85/63 18 19:20 123 H 13 82/50 08/20/17 19:18 129 H 14 08/20/17 19:16 14 91/68 08/20/17 19:14 129 H 11 L 03/06/18 19:12 16 83/69 03/06/18 19:10 129 H 13 83/69 08/20/17 19:08 12 08/20/17 19:06 15 92/57 08/20/17 19:04 15 08/20/17 19:02 28 H 92/62 08/20/17 19:00 97.3 F 128 H 13 92/62 08/20/17 18:58 128 H 08/20/17 18:56 110 H 91/43 08/20/17 18:54 91/64 08/20/17 18:52 136 H 84/58 08/20/17 18:50 129 H 13 91/43 08/20/17 18:48 134 H 25 H 08/20/17 18:46 130 H 11 L 93/08/20/17 18:45 132 H 13 /60 08/20/17 18:44 130 H 13 96/64 08/20/17 18:42 134 H 10 L 80/55 08/20/17 18:40 98.1 F 67 10 L 93/61 08/20/17 14:24 98.2 F 97 20 BP Pulse Ox 08/21/17 10:00 115/70 95 08/21/17 08:00 94 08/21/17 07:00 119/63 94 08/21/17 06:00 109/75 92 08/21/17 05:33 93 08/21/17 05:00 95 08/21/17 04:00 94/66 96 08/21/17 03:39 08/21/17 03:00 94 08/21/17 02:00 91 08/21/17 01:39 08/21/17 01:00 93 08/21/17 00:00 96 08/20/17 23:00 98 08/20/17 22:41 08/20/17 22:38 99 08/20/17 21:38 97 08/20/17 21:00 95 08/20/17 20:41 08/20/17 20:25 98 08/20/17 20:20 97 08/20/17 20:15 96 08/20/17 20:10 99 08/20/17 20:05 94 08/20/17 19:50 96 08/20/17 19:40 97 08/20/17 19:30 97 08/20/17 19:20 97 03/06/18 19:18 98 08/20/17 19:16 96 08/20/17 19:14 98 08/20/17 19:12 08/20/17 19:10 97 08/20/17 19:08 93 08/20/17 19:06 96 08/20/17 19:04 75 08/20/17 19:02 92 08/20/17 19:00 97 08/20/17 18:58 100 08/20/17 18:56 100 08/20/17 18:54 94 08/20/17 18:52 97 08/20/17 18:50 97 08/20/17 18:48 98 08/20/17 18:46 98 08/20/17 18:45 97 08/20/17 18:44 96 08/20/17 18:42 97 08/20/17 18:40 94 08/20/17 14:24 125/79 92 Laboratory Results 08/20/17 08/20/17 08/20/17 Range/Units 15:03 15:03 16:40 WBC 13.65 H (4.8-10.8) 10^3/uL RBC 5.08 (4.20-5.40) 10^6/uL Hgb 13.9 (12.0-16.0) g/dL Hct 41.7 (37.0-47.0) % MCV 82.1 (81-99) FL MCH 27.4 (27-31) PG MCHC 33.3 (33-37) g/dL RDW Std Deviation 45.6 (39-50) fL RDW Coeff of Anne 15.3 H (11.5-14.5) % Plt Count 450 H (140-350) 10*3/uL MPV 9.0 (7.4-12.2) FL Neutrophils % (Manual) 64 (50-80) % Band Neutrophils % 4 (0-10) % Lymphocytes % (Manual) 23 (10-50) % Monocytes % (Manual) 7 (0-12) % Eosinophils % (Manual) 1 (0-8) % Basophils % (Manual) 1 (0-1) % Metamyelocytes % Not Reportable Myelocytes % Not Reportable Promyelocytes % Not Reportable Blast Cells Not Reportable WBC Morphology Comment Normal morphology (NORM) Plt Morphology Comment Normal morphology (NORM) RBC Morph Comment Normal morphology (NORM) Sodium 133 L (135-145) meq/L Potassium 3.0 L (3.8-5.2) meq/L Chloride 91 L (98-112) meq/L Carbon Dioxide 27 (23-33) meq/L Anion Gap 15 (5-20) BUN 5 L (7-22) mg/dL Creatinine 0.4 L (0.50-1.20) mg/dL Estimated GFR > 60 (>60 ml/min/1.73m(2)) BUN/Creatinine Ratio 12.50 (6-20) Glucose 103 (78-110) mg/dL Calculated Osmolality 272.0 (267-292) mOsm/kg Lactic Acid (0.70-2.10) MMOL/L Calcium 8.2 L (8.7-10.7) mg/dL Magnesium (1.6-2.4) mg/dL Total Bilirubin 0.4 (0.3-1.2) mg/dL AST 24 (8-39) IU/L ALT 28 (9-52) IU/L Alkaline Phosphatase 116 (38-126) IU/L Total Protein 6.3 (6.1-8.0) g/dL Albumin 3.2 L (3.5-4.8) g/dL Globulin 3.1 (2.50-4.10) g/dL Albumin/Globulin Ratio 1.00 L (1.3-2.0) mg/g Blood Type O POSITIVE Antibody Screen Negative 08/20/17 08/20/17 08/20/17 Range/Units 17:30 22:25 22:25 WBC 33.18 H* 33.93 H* (4.8-10.8) 10^3/uL RBC 4.70 4.59 (4.20-5.40) 10^6/uL Hgb 12.8 12.7 (12.0-16.0) g/dL Hct 38.8 38.3 (37.0-47.0) % MCV 82.6 83.4 (81-99) FL MCH 27.2 27.7 (27-31) PG MCHC 33.0 33.2 (33-37) g/dL RDW Std Deviation 45.9 46.1 (39-50) fL RDW Coeff of Anne 15.3 H 15.3 H (11.5-14.5) % Plt Count 551 H 461 H (140-350) 10*3/uL MPV 8.8 9.1 (7.4-12.2) FL Neutrophils % (Manual) 77 (50-80) % Band Neutrophils % 12 H (0-10) % Lymphocytes % (Manual) 7 L (10-50) % Monocytes % (Manual) 4 (0-12) % Eosinophils % (Manual) 0 (0-8) % Basophils % (Manual) 0 (0-1) % Metamyelocytes % Not Reportable Myelocytes % Not Reportable Promyelocytes % Not Reportable Blast Cells Not Reportable WBC Morphology Comment Normal morphology (NORM) Plt Morphology Comment Normal morphology (NORM) RBC Morph Comment Normal morphology (NORM) Sodium 132 L (135-145) meq/L Potassium 3.6 L (3.8-5.2) meq/L Chloride 97 L (98-112) meq/L Carbon Dioxide 24 (23-33) meq/L Anion Gap 11 (5-20) BUN 7 (7-22) mg/dL Creatinine 0.6 (0.50-1.20) mg/dL Estimated GFR > 60 (>60 ml/min/1.73m(2)) BUN/Creatinine Ratio 11.66 (6-20) Glucose 155 H (78-110) mg/dL Calculated Osmolality 274.0 (267-292) mOsm/kg Lactic Acid (0.70-2.10) MMOL/L Calcium 6.9 L (8.7-10.7) mg/dL Magnesium 1.7 (1.6-2.4) mg/dL Total Bilirubin 0.2 L (0.3-1.2) mg/dL AST 14 (8-39) IU/L ALT 26 (9-52) IU/L Alkaline Phosphatase 59 (38-126) IU/L Total Protein 4.0 L (6.1-8.0) g/dL Albumin 1.8 L (3.5-4.8) g/dL Globulin 2.2 L (2.50-4.10) g/dL Albumin/Globulin Ratio 0.80 L (1.3-2.0) mg/g Blood Type Antibody Screen 08/20/17 08/21/17 08/21/17 Range/Units 22:25 05:16 05:16 WBC 27.74 H (4.8-10.8) 10^3/uL RBC 4.47 (4.20-5.40) 10^6/uL Hgb 12.7 (12.0-16.0) g/dL Hct 37.3 (37.0-47.0) % MCV 83.4 (81-99) FL MCH 28.4 (27-31) PG MCHC 34.0 (33-37) g/dL RDW Std Deviation 46.2 (39-50) fL RDW Coeff of Anne 15.4 H (11.5-14.5) % Plt Count 463 H (140-350) 10*3/uL MPV 9.3 (7.4-12.2) FL Neutrophils % (Manual) 75 (50-80) % Band Neutrophils % 19 H (0-10) % Lymphocytes % (Manual) 5 L (10-50) % Monocytes % (Manual) 1 (0-12) % Eosinophils % (Manual) 0 (0-8) % Basophils % (Manual) 0 (0-1) % Metamyelocytes % Not Reportable Myelocytes % Not Reportable Promyelocytes % Not Reportable Blast Cells Not Reportable WBC Morphology Comment Normal morphology (NORM) Plt Morphology Comment See comments (NORM) RBC Morph Comment Normal morphology (NORM) Sodium 136 (135-145) meq/L Potassium 4.4 (3.8-5.2) meq/L Chloride 101 (98-112) meq/L Carbon Dioxide 25 (23-33) meq/L Anion Gap 10 (5-20) BUN 7 (7-22) mg/dL Creatinine 0.6 (0.50-1.20) mg/dL Estimated GFR > 60 (>60 ml/min/1.73m(2)) BUN/Creatinine Ratio 11.66 (6-20) Glucose 142 H (78-110) mg/dL Calculated Osmolality 281.0 (267-292) mOsm/kg Lactic Acid 1.8 (0.70-2.10) MMOL/L Calcium 7.3 L (8.7-10.7) mg/dL Magnesium 2.3 (1.6-2.4) mg/dL Total Bilirubin 0.3 (0.3-1.2) mg/dL AST 41 H (8-39) IU/L ALT 27 (9-52) IU/L Alkaline Phosphatase 95 (38-126) IU/L Total Protein 4.1 L (6.1-8.0) g/dL Albumin 1.8 L (3.5-4.8) g/dL Globulin 2.3 L (2.50-4.10) g/dL Albumin/Globulin Ratio 0.70 L (1.3-2.0) mg/g Blood Type Antibody Screen 08/21/17 Range/Units 05:16 WBC (4.8-10.8) 10^3/uL RBC (4.20-5.40) 10^6/uL Hgb (12.0-16.0) g/dL Hct (37.0-47.0) % MCV (81-99) FL MCH (27-31) PG MCHC (33-37) g/dL RDW Std Deviation (39-50) fL RDW Coeff of Anne (11.5-14.5) % Plt Count (140-350) 10*3/uL MPV (7.4-12.2) FL Neutrophils % (Manual) (50-80) % Band Neutrophils % (0-10) % Lymphocytes % (Manual) (10-50) % Monocytes % (Manual) (0-12) % Eosinophils % (Manual) (0-8) % Basophils % (Manual) (0-1) % Metamyelocytes % Myelocytes % Promyelocytes % Blast Cells WBC Morphology Comment (NORM) Plt Morphology Comment (NORM) RBC Morph Comment (NORM) Sodium (135-145) meq/L Potassium (3.8-5.2) meq/L Chloride (98-112) meq/L Carbon Dioxide (23-33) meq/L Anion Gap (5-20) BUN (7-22) mg/dL Creatinine (0.50-1.20) mg/dL Estimated GFR (>60 ml/min/1.73m(2)) BUN/Creatinine Ratio (6-20) Glucose (78-110) mg/dL Calculated Osmolality (267-292) mOsm/kg Lactic Acid 1.5 (0.70-2.10) MMOL/L Calcium (8.7-10.7) mg/dL Magnesium (1.6-2.4) mg/dL Total Bilirubin (0.3-1.2) mg/dL AST (8-39) IU/L ALT (9-52) IU/L Alkaline Phosphatase (38-126) IU/L Total Protein (6.1-8.0) g/dL Albumin (3.5-4.8) g/dL Globulin (2.50-4.10) g/dL Albumin/Globulin Ratio (1.3-2.0) mg/g Blood Type Antibody Screen
--- NOTE | 2017-08-21 14:09 | PDOC(PROG) ---
Date and Time of Service: 08/21/2017, 1405 Interval History: Overall, felt better earlier this morning. Eating ice chips, still has NG tube in place. Abdominal pain present. No nausea or vomiting. Very tired. Objective : Data - Labs CBC and BMP: 08/21/17 05:16 08/21/17 05:16 Additional Lab Results: 08/21/17 08/21/17 08/21/17 05:16 05:16 05:16 Band Neutrophils % 19 H Lymphocytes % (Manual) 5 L Lactic Acid 1.5 Calcium 7.3 L Magnesium 2.3 Total Bilirubin 0.3 AST 41 H ALT 27 Alkaline Phosphatase 95 Total Protein 4.1 L Albumin 1.8 L Globulin 2.3 L Objective : Exam - General General Appearance: No Acute Distress, Cooperative Additional General Exam Details: Vital Signs - Last Taken Temperature 98.3 F 08/21/17 12:00 Pulse Rate 120 H 08/21/17 12:00 Respiratory Rate 20 08/21/17 12:00 Blood Pressure 124/89 08/21/17 12:00 Pulse Ox 95 08/21/17 12:00 - Eye Eye Exam: No Scleral Icterus - ENT ENT Exam: Mucous Membranes Moist - Respiratory Respiratory Exam: Clear to Auscultation - Bilaterally, Breathing Non Labored - Cardiovascular Cardiovascular Exam: No Murmur, No Clicks, No Gallops, No Rubs, Tachycardia, No JVD - GI/Abdominal GI/Abdominal Exam: Non Distended, Soft Additional GI/Abdominal Exam Details: Tender to palpation. - Extremities Extremities Exam: No Clubbing Present, No Cyanosis Present Additional Extremities Exam Details: Trace lower extremity edema present. - Neurological Neurological Exam: Alert, Oriented x 3, No Facial Droop, Speech Intact / Clear, Moves All Extremities Equally Assessment and Plan - Patient Problems (1) Sepsis Current Visit: Yes Status: Acute Code(s): A41.9 - Sepsis, unspecified organism Qualifiers: Sepsis type: sepsis due to unspecified organism Qualified Code(s): A41.9 - Sepsis, unspecified organism (2) Intra-abdominal abscess post-procedure Current Visit: Yes Status: Acute Code(s): T81.4XXA - Infection following a procedure, initial encounter; K65.1 - Peritoneal abscess Qualifiers: Encounter type: initial encounter Qualified Code(s): T81.4XXA - Infection following a procedure, initial encounter; K65.1 - Peritoneal abscess (3) Small bowel perforation Current Visit: Yes Status: Acute Code(s): K63.1 - Perforation of intestine ( nontraumatic) (4) Fibromyalgia Current Visit: Yes Status: Chronic Onset Date: 02/08/16 Code(s): M79.7 - Fibromyalgia (5) Asthma Current Visit: No Status: Chronic Qualifiers: Asthma severity: mild Asthma persistence: intermittent Asthma complication type: uncomplicated Qualified Code(s): J45.20 - Mild intermittent asthma, uncomplicated (6) Hypothyroidism Current Visit: Yes Status: Chronic Qualifiers: Hypothyroidism type: acquired Qualified Code(s): E03.9 - Hypothyroidism, unspecified (7) Rheumatoid arthritis Current Visit: Yes Status: Acute Code(s): M06.9 - Rheumatoid arthritis, unspecified Qualifiers: Rheumatoid factor presence: unspecified presence Laterality: unspecified laterality - Assessment / Plan Additional Assessment/Plan Details: I think she is adequately fluid resuscitated, apparently has tachycardia at baseline. Nutritionally, think she would benefit from some TPN until her diet is resumed. We will place a PICC line, check phosphate level as well. I spoke to nutrition about this and they'll get a second couple of bags maybe 3, for TPN. Electrolytes looked much better. We'll check again tomorrow. Replace as necessary. Continue Invanz, today is day 2. I think the patient would benefit from a prolonged course of IV antibiotics of at least 14 days. blood cultures pending I think we can hold off on vasopressors for now. 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 Continue DVT prophylaxis
[2017-08-21] MEDS ORDERED: FUROSEMIDE 10 MG/1 ML - 2 ML VIAL IVP ONE (16:14)
[2017-08-21] MEDS ORDERED: Acetaminophen 1000mg Inj 1,000 MG/100 ML VIAL IV PRN (17:00)
[2017-08-21] MEDS ORDERED: PHENOL/SODIUM PHENOLATE 177 ML SPRAY PO PRN (20:27)
[2017-08-21] MEDS ORDERED: Multivitamin Tab 1 TAB PO ONE (20:30)
[2017-08-21] MEDS: AA-Dext 5%-25%/Calcium/Lytes 2,000 ML IV SCH (20:32)
[2017-08-21] MEDS: Fat Emulsions Inj 20% 250 ML IV SCH (20:32)
--- NOTE | 2017-08-21 20:34 | DI ---
INSERTION OF PICC LINE WITH FLUOROSCOPIC GUIDANCE, 08/21/2017 11:12 AM: Clinical History: Intra-abdominal abscesses. Technique: After informed, signed consent was obtained, the right arm was prepped with Betadine and a lcohol. Venipuncture was achieved under sonographic guidance. And the introducer sheath was positione d in place using the Seldinger technique with local anesthesia (1% Lidocaine without epinephrine). A 4 Hebrew double lumen Bard Power Picc Solo PICC catheter was inserted and the tip was positioned wi th fluoroscopic guidance. Fluoroscopic documentation was with a spot film. The standard dry sterile dressing kit was used to secure the catheter. Final catheter documentation w as with a spot film of the chest and this film confirmed that the catheter tip was in the distal SVC. The patient tolerated the procedure well and was discharged in stable condition. Standard instructio ns regarding wound care precautions and dressing changes were discussed with the patient prior to dis charge. Sales Team Member: Dr. Kevin wen M.D. Motor Bike Mechanic: None. Complications: None. Reading: PICC line placement as above.
[2017-08-21 21:39] LABS: Hematocrit [HCT] 30.7 % (37.0-47.0); Hemoglobin [HGB] 9.8 g/dL (12.0-16.0); MEAN CORPUSCULAR HEMOGLOBIN 27.1 PG (27-31); MEAN CORPUSCULAR HGB CONC 31.9 g/dL (33-37); MEAN PLATELET VOLUME 9.2 FL (7.4-12.2); RED BLOOD COUNT 3.61 10^6/uL (4.20-5.40)
[2017-08-21] MEDS ORDERED: MVI, ADULT NO.1 WITH VIT K 10 ML VIAL IV ONE (21:41)
[2017-08-21 21:47] LABS: BAND NEUTROPHILS % 1 % (0-10); BASOPHILS % (MANUAL) 0 % (0-1); EOSINOPHILS % (MANUAL) 0 % (0-8); MONOCYTES % (MANUAL) 5 % (0-12); NEUTROPHILS % (MANUAL) 85 % (50-80); PLATELET MORPHOLOGY COMMENT NORMAL MORPHOLOGY (NORM); RBC MORPHOLOGY COMMENT NORMAL MORPHOLOGY (NORM); WBC MORPHOLOGY COMMENT NORMAL MORPHOLOGY (NORM)
[2017-08-21] MEDS ORDERED: Sodium Chloride 0.9% 1,000 ML ONE (22:13)
[2017-08-21] MEDS: KETOROLAC 15 MG/1 ML VIAL IVP PRN (22:27)
[2017-08-22] MEDS ORDERED: LIDOCAINE HCL 2 % 10 ML JELLY URO-JECT TOPICAL PRN (05:12)
[2017-08-22] MEDS: HEPARIN 5000 UNIT/1 ML SUBCUT SCH ×3 (05:32→22:12)
[2017-08-22] MEDS: KETOROLAC 15 MG/1 ML VIAL IVP PRN ×3 (05:33→21:58)
[2017-08-22 05:37] LABS: Hematocrit [HCT] 29.2 % (37.0-47.0); Hemoglobin [HGB] 9.4 g/dL (12.0-16.0); MEAN CORPUSCULAR HEMOGLOBIN 27.7 PG (27-31); MEAN CORPUSCULAR HGB CONC 32.2 g/dL (33-37); MEAN CORPUSCULAR VOLUME 86.1 FL (81-99); MEAN PLATELET VOLUME 9.6 FL (7.4-12.2); RED BLOOD COUNT 3.39 10^6/uL (4.20-5.40)
[2017-08-22 05:50] LABS: BLOOD UREA NITROGEN 16 mg/dL (7-22); CHOL/HDL RATIO 6.25 RATIO (0-4.0)
[2017-08-22 05:55] LABS: SERUM CHOLESTEROL < 50 mg/dL (120-200)
[2017-08-22 06:29] LABS: BAND NEUTROPHILS % 15 % (0-10); BASOPHILS % (MANUAL) 0 % (0-1); EOSINOPHILS % (MANUAL) 0 % (0-8); MONOCYTES % (MANUAL) 2 % (0-12); NEUTROPHILS % (MANUAL) 81 % (50-80); PLATELET MORPHOLOGY COMMENT NORMAL MORPHOLOGY (NORM); RBC MORPHOLOGY COMMENT NORMAL MORPHOLOGY (NORM); WBC MORPHOLOGY COMMENT NORMAL MORPHOLOGY (NORM)
[2017-08-22] MEDS: HYDROmorphone/PF/PCA 9 MG/30 ML IV SCH (07:28)
[2017-08-22] MEDS: Multivitamin Tab 1 TAB PO SCH (09:00)
[2017-08-22] MEDS: Pantoprazole Inj 40 MG in Normal Saline Flush 10 ML IVP SCH (09:30)
[2017-08-22] MEDS: LEVOTHYROXINE IVP SCH (09:36)
[2017-08-22] MEDS: SODIUM CHLORIDE 0.9% IVP SCH (09:36)
[2017-08-22] MEDS: Ertapenem Inj 1 GM in Sodium Chloride 0.9% 100 ML IV SCH (09:48)
[2017-08-22] MEDS: NORMAL SALINE 10 ML SYRINGE FLUSH IV PRN ×3 (09:51→21:58)
--- NOTE | 2017-08-22 12:25 | PDOC(PROG) ---
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 She would like to have NG tube out. Patient's been having some vaginal drainage which is fluid and little bit of blood Objective : Data - Labs CBC and BMP: 08/22/17 04:25 08/21/17 05:16 - Vital Signs Vital Signs and I&O: Vital Signs - Last Taken Temperature 98.7 F 08/22/17 10:00 Pulse Rate 92 08/22/17 10:00 Respiratory Rate 18 08/22/17 10:00 Blood Pressure 104/59 08/22/17 10:00 Pulse Ox 99 08/22/17 10:00 Intake and Output (24hr x 4 totals) 08/20/17 08/21/17 08/22/17 08/23/17 05:59 05:59 05:59 05:59 Intake Total 6412 / 6412 2809 / 2809 Output Total 1030 / 1030 785 / 785 300 / 300 Balance 5382 / 5382 2023 / 2023 -300 / -300 Objective : Exam - General General Appearance: No Acute Distress, Cooperative - Respiratory Respiratory Exam: Clear to Auscultation - Bilaterally, Breathing Non Labored - GI/Abdominal GI/Abdominal Exam: Normal Bowel Sounds, Non Tender, Non Distended, Soft Assessment and Plan - Patient Problems (1) Sepsis Current Visit: Yes Status: Acute Code(s): A41.9 - Sepsis, unspecified organism Qualifiers: Sepsis type: sepsis due to unspecified organism Qualified Code(s): A41.9 - Sepsis, unspecified organism (2) Small bowel perforation Current Visit: Yes Status: Acute Code(s): K63.1 - Perforation of intestine ( nontraumatic) - Assessment / Plan Additional Assessment/Plan Details: Continue TPN and management per hospitalist. May DC NG tube but keep patient on ice chips. Continue IV antibiotics
--- NOTE | 2017-08-22 13:24 | PDOC(PROG) ---
Interval History: Patient has no complaints other than once her NG tube out still pretty much overall uncomfortable tolerating TPN Objective : Data - Labs CBC and BMP: 08/22/17 04:25 08/21/17 05:16 Objective : Exam - General General Appearance: Cooperative - Respiratory Respiratory Exam: Clear to Auscultation - Bilaterally, Breathing Non Labored, Normal To Percussion, Normal to Percussion and Palpation - Cardiovascular Cardiovascular Exam: RRR, No Murmur, No Clicks, No Gallops, No Rubs, PMI Non- Displaced - GI/Abdominal GI/Abdominal Exam: Normal Bowel Sounds, Non Tender, Non Distended, Soft, No Masses, No Hepatomegaly, No Splenomegaly, No Organomegaly Assessment and Plan - Patient Problems (1) Hypothyroidism Current Visit: Yes Status: Chronic Comment: Continue replacement IV patient still nothing by mouth on ice chips Qualifiers: Hypothyroidism type: acquired Qualified Code(s): E03.9 - Hypothyroidism, unspecified (2) Asthma Current Visit: No Status: Chronic Comment: Stable at present time Qualifiers: Asthma severity: mild Asthma persistence: intermittent Asthma complication type: uncomplicated Qualified Code(s): J45.20 - Mild intermittent asthma, uncomplicated (3) Fibromyalgia Current Visit: Yes Status: Chronic Onset Date: 02/08/16 Code(s): M79.7 - Fibromyalgia (4) Small bowel perforation Current Visit: Yes Status: Acute Comment: That is bolused resection general surgery Dr. jeff Ramey following continue TPN for now electrolytes look well-balanced continue IV antibiotics most likely will need to 14 days total blood cultures are negative thus far PICC line is in place Code(s): K63.1 - Perforation of intestine (nontraumatic) (5) Sepsis Current Visit: Yes Status: Acute Code(s): A41.9 - Sepsis, unspecified organism Qualifiers: Sepsis type: sepsis due to unspecified organism Qualified Code(s): A41.9 - Sepsis, unspecified organism (6) Intra-abdominal abscess post-procedure Current Visit: Yes Status: Acute Code(s): T81.4XXA - Infection following a procedure, initial encounter; K65.1 - Peritoneal abscess Qualifiers: Encounter type: initial encounter Qualified Code(s): T81.4XXA - Infection following a procedure, initial encounter; K65.1 - Peritoneal abscess (7) Rheumatoid arthritis Current Visit: Yes Status: Acute Code(s): M06.9 - Rheumatoid arthritis, unspecified Qualifiers: Rheumatoid factor presence: unspecified presence Laterality: unspecified laterality
--- NOTE | 2017-08-22 17:00 | OT.PROG ---
Progress Note Progress Note: Occupational Therapy: 10 min S: pt stated she was feeling okay and willing to participate in therapy today. O: pt completed breathing techniques training and demonstrated understanding. pt completed UE exercises of AROM shoulder flexion x15, shoulder extension x15. A: pt was an active participant in therapy today P: continue POC
[2017-08-22] MEDS: AA-Dext 5%-25%/Calcium/Lytes 2,000 ML IV SCH (21:09)
[2017-08-22] MEDS: Fat Emulsions Inj 20% 250 ML IV SCH (21:09)
[2017-08-22] MEDS ORDERED: diphenhydrAMINE 50 MG/1 ML VIAL IVP ONE (21:33)
[2017-08-22] MEDS ORDERED: Albumin Human Soln 25% 25 GM/100 ML IV.SOLN IV ONE (21:46)
[2017-08-22] MEDS ORDERED: FUROSEMIDE 10 MG/1 ML - 4 ML IVP ONE (23:00)
[2017-08-23] MEDS: KETOROLAC 15 MG/1 ML VIAL IVP PRN ×2 (04:56→21:28)
[2017-08-23] MEDS: HEPARIN 5000 UNIT/1 ML SUBCUT SCH (05:00)
[2017-08-23] MEDS ORDERED: FUROSEMIDE 10 MG/1 ML - 4 ML IVP ONE ×2 (05:30→13:00)
[2017-08-23 06:11] LABS: BLOOD UREA NITROGEN 12 mg/dL (7-22); SERUM ALBUMIN 2.1 g/dL (3.5-4.8)
[2017-08-23 06:13] LABS: Hematocrit [HCT] 25.5 % (37.0-47.0); Hemoglobin [HGB] 7.9 g/dL (12.0-16.0); MEAN CORPUSCULAR HEMOGLOBIN 27.1 PG (27-31); MEAN CORPUSCULAR VOLUME 87.6 FL (81-99); MEAN PLATELET VOLUME 9.2 FL (7.4-12.2); RED BLOOD COUNT 2.91 10^6/uL (4.20-5.40)
[2017-08-23 06:30] LABS: SERUM CHOLESTEROL < 50 mg/dL (120-200)
[2017-08-23 06:41] LABS: BAND NEUTROPHILS % 4 % (0-10); BASOPHILS % (MANUAL) 0 % (0-1); EOSINOPHILS % (MANUAL) 0 % (0-8); MONOCYTES % (MANUAL) 3 % (0-12); NEUTROPHILS % (MANUAL) 87 % (50-80)
[2017-08-23 06:42] LABS: PLATELET MORPHOLOGY COMMENT NORMAL MORPHOLOGY (NORM); RBC MORPHOLOGY COMMENT NORMAL MORPHOLOGY (NORM); WBC MORPHOLOGY COMMENT NORMAL MORPHOLOGY (NORM)
--- NOTE | 2017-08-23 07:30 | PT.PROG ---
Progress Note Progress Note: Physical Therapy treatment: 10 min S: Pt stated that she was feeling better than this morning and willing to participate in therapy. O: Pt performed bilateral LE AROM exercises seated at edge of bed including LAQ x15, hip flexion marches x12 and ankle pumps x 15. Pt performed sit to stand transfer with CGA. She tolerated standing for 3 minutes using a standard walker. Minimal serosanguineous drainage from the groin was noted upon standing and nursing was notified. A: Continued with LE strengthening, bed mobility and transfer training. Further mobility is limited by bleeding, drowsiness and multiple IV's present. P: Continue plan of care. Progress to ambulation was appropriate. Submitted by: Susan Muñoz, SPT Supervised by: Serena Feliz, PT
[2017-08-23] MEDS: Pantoprazole Inj 40 MG in Normal Saline Flush 10 ML IVP SCH (09:33)
[2017-08-23] MEDS: SODIUM CHLORIDE 0.9% IVP SCH (09:41)
[2017-08-23] MEDS: LEVOTHYROXINE IVP SCH (09:41)
[2017-08-23] MEDS: Ertapenem Inj 1 GM in Sodium Chloride 0.9% 100 ML IV SCH (09:44)
[2017-08-23] MEDS: Multivitamin Tab 1 TAB PO SCH (09:45)
--- NOTE | 2017-08-23 11:19 | PDOC(PROG) ---
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 She is not nauseated. Objective : Data - Labs CBC and BMP: 08/23/17 04:25 08/23/17 04:25 - Vital Signs Vital Signs and I&O: Vital Signs - Last Taken Temperature 97.8 F 08/23/17 09:00 Pulse Rate 94 08/23/17 10:00 Respiratory Rate 16 08/23/17 10:00 Blood Pressure 112/68 08/23/17 10:00 Pulse Ox 97 08/23/17 10:00 Intake and Output (24hr x 4 totals) 08/21/17 08/22/17 08/23/17 08/24/17 05:59 05:59 05:59 05:59 Intake Total 6412 / 6412 2809 / 2809 2897 / 2897 1945 / 1945 Output Total 1030 / 1030 785 / 785 1800 / 1800 950 / 950 Balance 5382 / 5382 2023 / 2023 1097 / 1097 995 / 995 Objective : Exam - General General Appearance: No Acute Distress, Cooperative - GI/Abdominal GI/Abdominal Exam: Normal Bowel Sounds, Non Tender, Non Distended, Soft Additional GI/Abdominal Exam Details: I did pull [place] of the incision. There Was not much drainage on them. Assessment and Plan - Patient Problems (1) Sepsis Current Visit: Yes Status: Acute Code(s): A41.9 - Sepsis, unspecified organism Qualifiers: Sepsis type: sepsis due to unspecified organism Qualified Code(s): A41.9 - Sepsis, unspecified organism (2) Small bowel perforation Current Visit: Yes Status: Acute Code(s): K63.1 - Perforation of intestine ( nontraumatic) - Assessment / Plan Additional Assessment/Plan Details: Patient is actually doing very well. Surpassing flatus today therefore will start on clear liquid diet. I would continue the TPN for another 24 hours at least. Her hemoglobin is now 7.9 but this may be dilutional but patient does have a little bit of vaginal blood therefore we'll stop the heparin. Watch her hemoglobin closely. She does seem to be tolerating the hemoglobin is 7.9 vital signs stable. She is afebrile also.
--- NOTE | 2017-08-23 11:59 | PDOC(PROG) ---
Interval History: Patient is doing well today has no complaints she is passing gas her diet was advanced to clears. No chest pain nausea vomiting Objective : Data - Labs CBC and BMP: 08/23/17 04:25 08/23/17 04:25 Objective : Exam - General General Appearance: No Acute Distress, Cooperative - Respiratory Respiratory Exam: Clear to Auscultation - Bilaterally, Breathing Non Labored, Normal To Percussion, Normal to Percussion and Palpation - Cardiovascular Cardiovascular Exam: RRR, No Murmur, No Clicks, No Gallops, No Rubs, PMI Non- Displaced - GI/Abdominal GI/Abdominal Exam: Normal Bowel Sounds, Non Tender, Non Distended, Soft, No Masses, No Hepatomegaly, No Splenomegaly, No Organomegaly - Extremities Extremities Exam: No Clubbing Present, No Edema Present Assessment and Plan - Patient Problems (1) Hypothyroidism Current Visit: Yes Status: Chronic Qualifiers: Hypothyroidism type: acquired Qualified Code(s): E03.9 - Hypothyroidism, unspecified (2) Asthma Current Visit: No Status: Chronic Qualifiers: Asthma severity: mild Asthma persistence: intermittent Asthma complication type: uncomplicated Qualified Code(s): J45.20 - Mild intermittent asthma, uncomplicated (3) Fibromyalgia Current Visit: Yes Status: Chronic Onset Date: 02/08/16 Code(s): M79.7 - Fibromyalgia (4) Small bowel perforation Current Visit: Yes Status: Acute Code(s): K63.1 - Perforation of intestine ( nontraumatic) (5) Sepsis Current Visit: Yes Status: Acute Code(s): A41.9 - Sepsis, unspecified organism Qualifiers: Sepsis type: sepsis due to unspecified organism Qualified Code(s): A41.9 - Sepsis, unspecified organism (6) Intra-abdominal abscess post-procedure Current Visit: Yes Status: Acute Code(s): T81.4XXA - Infection following a procedure, initial encounter; K65.1 - Peritoneal abscess Qualifiers: Encounter type: initial encounter Qualified Code(s): T81.4XXA - Infection following a procedure, initial encounter; K65.1 - Peritoneal abscess (7) Rheumatoid arthritis Current Visit: Yes Status: Acute Code(s): M06.9 - Rheumatoid arthritis, unspecified Qualifiers: Rheumatoid factor presence: unspecified presence Laterality: unspecified laterality - Assessment / Plan Additional Assessment/Plan Details: #1 status post bowel resection secondary to postop complications and abscesses on IV antibiotics white count improving deferred to general surgery for management #2 continue TPN for at least another 24 hours I discussed this with Dr. jeff Ramey #3 hypokalemia replace by mouth twice a day 40 mEq #4 edema from fluid overload patient is receiving IV Lasix with good urine output #5 anemia postop might be delusional we'll keep a close eye on her CBC heparin subcutaneous was stopped by Dr. jeff Ramey #6 IV thyroid replacement can resume a by mouth maybe by tomorrow Discussed with nursing and patient Dr. jeff Ramey
--- NOTE | 2017-08-23 13:04 | OT.PROG ---
Progress Note Progress Note: Occupational Therapy: 15 min S: pt stated she was happy now that her " nose tube" was gone. but was still tired but willing to work. O: pt completed AROM exercises of shoulder flexion x15, shoulder abduction x15, biceps curls x15, wrist flex/ext x15. A: pt was an active participant in therapy today. P: continue POC
[2017-08-23] MEDS: NORMAL SALINE 10 ML SYRINGE FLUSH IV PRN (13:17)
[2017-08-23] MEDS: HYDROmorphone 2 MG/1 ML IVP PRN (14:37)
--- NOTE | 2017-08-23 14:50 | OTI REPORT ---
Thank you for the referral of Romi Del Castillo. She was seen on 08/22/17 for an occupational therapy inpatient evaluation secondary to a bowel perforation. SUBJECTIVE: The patient is a 47-year-old female who had a hysterectomy a couple of weeks ago. Since that time the patient has had a bowel perforation in a couple of different spots. The patient then became septic. 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 The patient reports she is normally a very active person. The patient has two daughters who are 21 and 16. She typically drives and performs all ADLs within her home. The patient tries to be a very active individual. PAST MEDICAL HISTORY: Past medical history can be found in the patient's medical record. OBJECTIVE FINDINGS: General observations: The patient had a lot of tubes and drains. She looked somewhat pale. She was very lethargic and had difficulty opening her eyes. Once she did star talking and opening her eyes, we did have to move very slowly secondary to the stomach pain that the patient was experiencing. Bed mobility: The patient did come from supine to sit with mod assist. Range of motion: While sitting edge of bed the patient had 120 degrees of shoulder flexion and 110 degrees of shoulder abduction. Strength: Strength for shoulder flexion was 3+/5, shoulder extension was 4/5, and shoulder abduction was 3/5. Edema: The patient has Grade II to III edema throughout her bilateral upper extremities. Her hands are very swollen and very tender to the touch. The patient and her nurse reported that she just started Lasix to try to reduce the swelling in her body. We did discuss some possibilities to reduce edema, but we will wait a day or two to see if the Lasix kicks in to help reduce swelling. Activities of daily living: At this time the patient requires max assist for all ADLs. She states it hurts to bad to bend over to perform lower extremity dressing. The patient moves very slowly with upper extremity dressing. Transfers: The patient requires max assist for functional transfers. She did stand one time during the assessment and she had an immense amount of bleeding and drainage from the peroneal area. The patient can not move very far from bed without getting an extreme amount of drainage when standing. ASSESSMENT: The patient may possibly benefit from adaptive equipment to assist with dressing self once the patient is feeling a little bit better. Strengthening may be somewhat limited due to the patient's stomach precautions and her new incision. We do want her to become more mobile with her upper extremities. Problem List: Upper extremity edema Decreased activity tolerance Decreased strength Varied alertness levels due to pain medications Increased drainage Stomach pressure/pain Short-Term Goals: To be met by discharge from inpatient: Patient will be able to dress self independently with or without use of adaptive equipment. Patient will improve upper extremity strength to 4/5 to perform functional transfers and bed transfers independently. Patient will be able to walk to the bathroom and complete toileting activities independently. Patient will be able to stand at sink x5 minutes to complete hygiene activities to improve activity tolerance. Long-Term Goals: To be met following discharge from inpatient: Patient will return home to [place], demonstrating independence with all ADLs and functional activities 100% of the time. TREATMENT PLAN: Patient will be seen B.I.D during the week and one time per day over the weekend as an inpatient to address the above goals and objectives. INITIAL TREATMENT: Treatment today consisted of the initial evaluation followed by the patient completing bed mobility with max to mod assist and sitting edge of bed and working on very easy active range of motion of the upper extremities, which was painful for the patient. We also worked on standing x30 seconds, but the patient had an extreme amount of drainage from the peroneal area. The patient was placed back in bed with call light within reach. PETER
[2017-08-23] MEDS ORDERED: Sodium Chloride 0.9% 1,000 ML PRIMARY IV SCH (15:30)
--- NOTE | 2017-08-23 15:55 | PTI REPORT ---
Thank you for the referral of Romi Del Castillo. She was seen on 08/22/17 for an inpatient evaluation secondary to generalized weakness. SUBJECTIVE: The patient is a 47-year-old female. The patient states that this all began approximately three weeks ago following a hysterectomy in which they accidentally knicked the bowel and she eventually became septic. The patient reports she lives in [place] with her and 16-year-old daughter. They lives in a single story house with three steps to enter. There is a railing available. The patient states she was previously independent with all ADLs including driving. 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 The patient reports a history of a right shoulder rotator cuff repair and a left total knee replacement. The patient denies numbness or tingling in her feet, but she does report a history of leg pain due to phlebitis. Currently the patient reports a pain level of 6/10 on the verbal analog scale (0=no pain, 10=worst pain) in her abdomen and minimal pain in her back, which is chronic. PAST MEDICAL HISTORY: Past medical history can be found in the patient's medical record. OBJECTIVE FINDINGS: General observations: Upon the therapist's arrival, the patient was supine in bed. She was drowsy, but oriented x3. Vitals were recorded. Blood pressure was 106/59. Heart rate was 100 beats per minute. Oxygen saturation was 98%. The patient was on 2 liters of supplemental oxygen. Multiple IVs were present as well as an NG drain through the nose and a catheter. Edema: The patient's bilateral hands were visibly swollen. She was encouraged to move her hands and to work on grasping to attempt to decrease that swelling. Range of motion: The patient displayed upper extremity and lower extremity range of motion within normal limits. Bed mobility: The patient performed bed mobility with min assist and she reported increased abdominal pain when coming from supine to sit. The patient was able to sit edge of bed independently. Transfers: The patient performed two sit to stand transfers with contact guard assist. The patient tolerated standing for approximately 2 minutes on the first bout and 1 minute on the second bout. Standing was limited due to leaking blood from the groin area as well as increased pain. Nursing was notified of the bleeding. Strength: Strength was not formally tested but the patient was able to move lower extremities throughout full range of motion and perform transfers. ASSESSMENT: The patient was seen for physical therapy evaluation for weakness following hospital admission for weakness. Problem List: Pain Weakness Decreased endurance Decreased independence with functional mobility including bed mobility/ transfers/ambulation Short-Term Goals: To be met by discharge from inpatient: Patient will be able to perform bed mobility independently in order to return to prior level of function. Patient will be able to perform transfers independently with least restrictive assistive device in order to return home safely. Patient will be able to ambulate 40 feet x2 with stand by assist with least restrictive assistive device for safe household ambulation. Patient will demonstrate increased strength and balance by being able to perform bed mobility and transfers independently. Patient will report a pain level less than or equal to 2/10 during movement in order to participate in functional activities. Long-Term Goals: To be met following discharge from inpatient: Patient will be seen by outpatient physical therapy. TREATMENT PLAN: Patient will be seen B.I.D during the week and one time per day over the weekend as an inpatient for bed mobility, transfer and gait training, strengthening, and balance exercises due to prolonged hospitalization, as well as safety education in order to return to prior level of function and decrease fall risk. INITIAL TREATMENT: Treatment today consisted of the initial evaluation activities only. The patient was educated on gradual progression of physical therapy in the hospital and benefits of physical activity to reduce the risk of pneumonia. The patient was also encouraged to move her hands often in order to reduce swelling. At the conclusion of the evaluation the patient returned to supine in bed with her call button and pain medication button within reach. Nursing was notified. Dictated by: Susan Muñoz SPT Supervised by: JOYA Gonzalez
[2017-08-23 16:49] LABS: Hematocrit [HCT] 28.6 % (37.0-47.0); MEAN CORPUSCULAR HEMOGLOBIN 27.4 PG (27-31); MEAN CORPUSCULAR HGB CONC 31.5 g/dL (33-37); MEAN CORPUSCULAR VOLUME 87.2 FL (81-99); MEAN PLATELET VOLUME 8.9 FL (7.4-12.2); RED BLOOD COUNT 3.28 10^6/uL (4.20-5.40)
--- NOTE | 2017-08-23 17:08 | OT.PROG ---
Progress Note Progress Note: S: pt states she has been doing some activities with her wrist and ankles while sitting in her chair. She also report past RTC repair. O: pt was seen in her room and completed light ther ex with YTB all below 90 deg. She completed shoulder ext, bicep flex, IROT, and active shoulder flex. She also completed LAQ with no resistance, YTB in ankle ext/flex x20. A: pt tolerated tx well today and may continue to benefit from therapy to regain her overall strength. P: continue per POC.
[2017-08-23] MEDS: HYDROmorphone/PF/PCA 9 MG/30 ML IV SCH (17:55)
--- NOTE | 2017-08-23 17:57 | PT.PROG ---
Progress Note Progress Note: S. Patient stated that she is feeling a little better this afternoon. She reports that she would like to get out of bed for a little bit. O. patient transferred from supine to sitting then sit to stand then stood x 5 minutes, then ambulated to the chair where she was left with nursing staff. A. Patient tolerated ambulation and transfers well, she continues to have weakness and would benefit from continued strengthening at this time. P. continue POC.
[2017-08-23] MEDS ORDERED: POTASSIUM CHLORIDE 20 MEQ TAB PO SCH (21:00)
[2017-08-24] MEDS: HYDROmorphone 2 MG/1 ML IVP PRN (04:39)
[2017-08-24 05:16] LABS: BLOOD UREA NITROGEN 8 mg/dL (7-22); SERUM ALBUMIN 2.1 g/dL (3.5-4.8)
[2017-08-24 05:21] LABS: Hematocrit [HCT] 25.3 % (37.0-47.0); Hemoglobin [HGB] 8.2 g/dL (12.0-16.0); MEAN CORPUSCULAR HEMOGLOBIN 27.9 PG (27-31); MEAN CORPUSCULAR HGB CONC 32.4 g/dL (33-37); MEAN CORPUSCULAR VOLUME 86.1 FL (81-99); MEAN PLATELET VOLUME 9.2 FL (7.4-12.2); RED BLOOD COUNT 2.94 10^6/uL (4.20-5.40)
[2017-08-24] MEDS ORDERED: LEVOTHYROXINE 75 MCG TABLET PO SCH (05:30)
[2017-08-24 05:45] LABS: PLATELET MORPHOLOGY COMMENT NORMAL MORPHOLOGY (NORM); RBC MORPHOLOGY COMMENT SEE COMMENTS (NORM); WBC MORPHOLOGY COMMENT NORMAL MORPHOLOGY (NORM)
[2017-08-24 05:46] LABS: BAND NEUTROPHILS % 2 % (0-10); BASOPHILS % (MANUAL) 0 % (0-1); EOSINOPHILS % (MANUAL) 0 % (0-8); MONOCYTES % (MANUAL) 6 % (0-12); NEUTROPHILS % (MANUAL) 83 % (50-80)
[2017-08-24] MEDS ORDERED: Magnesium Sulfate 2gm (Premix) 2 GM/50 ML BAG IV ONE ×2 (07:44→07:55)
[2017-08-24] MEDS ORDERED: ALBUTEROL SULFATE 2.5 MG/3 ML NEB PRN (07:55)
[2017-08-24] MEDS ORDERED: HYDROmorphone 2 MG/1 ML IVP PRN (07:55)
[2017-08-24] MEDS ORDERED: LIDOCAINE W/ SODIUM BICARB 0.5 ML SYR SUBD PRN (07:55)
[2017-08-24] MEDS ORDERED: Lidocaine 1% 10 MG/ML - 20 ML VIAL SUBCUT PRN (07:55)
[2017-08-24] MEDS ORDERED: NALOXONE 0.4 MG/1 ML VIAL IVP PRN ×3 (07:55)
[2017-08-24] MEDS ORDERED: HYDROmorphone/PF/PCA 9 MG/30 ML IV SCH (07:55)
[2017-08-24] MEDS ORDERED: PHENOL/SODIUM PHENOLATE 177 ML SPRAY PO PRN (07:55)
[2017-08-24] MEDS ORDERED: LIDOCAINE HCL 2 % 10 ML JELLY URO-JECT TOPICAL PRN (07:55)
[2017-08-24] MEDS ORDERED: LIDOCAINE 2% 20 MG/ML - 20 ML VIAL SUBCUT PRN (07:55)
[2017-08-24] MEDS ORDERED: Acetaminophen 1000mg Inj 1,000 MG/100 ML VIAL IV PRN (07:55)
[2017-08-24] MEDS ORDERED: ONDANSETRON 4 MG/2 ML VIAL IVP PRN (07:55)
[2017-08-24] MEDS: Ertapenem Inj 1 GM in Sodium Chloride 0.9% 100 ML IV SCH (08:34)
[2017-08-24] MEDS: Pantoprazole Inj 40 MG in Normal Saline Flush 10 ML IVP SCH (08:38)
[2017-08-24] MEDS: POTASSIUM CHLORIDE 20 MEQ TAB PO SCH ×2 (08:41→18:02)
[2017-08-24] MEDS: Multivitamin Tab 1 TAB PO SCH (08:42)
[2017-08-24] MEDS: Sodium Chloride 0.9% 1,000 ML PRIMARY IV SCH (08:44)
--- NOTE | 2017-08-24 08:52 | PDOC(PROG) ---
Interval History: Patient is doing well passing a lot of gas no pain she does have some reactions in her buttocks with redness nurses are keeping it dry and applying the ointment and Benadryl did not make a difference but did make her very sleepy most likely a contact reaction or multifactorial Objective : Data - Labs CBC and BMP: 08/24/17 04:21 18 04:21 Objective : Exam - General General Appearance: Cooperative - Neck Neck Exam: Normal Inspection - Cardiovascular Cardiovascular Exam: RRR, No Murmur, No Clicks, No Gallops, No Rubs, PMI Non- Displaced - GI/Abdominal GI/Abdominal Exam: Normal Bowel Sounds, Non Tender, Non Distended, Soft, No Masses, No Hepatomegaly, No Splenomegaly, No Organomegaly - Rectal Rectal Exam: Deferred - Neurological Neurological Exam: Alert, Oriented x 3, Reflexes Normal, Normal Gait, CN II-XII Intact, No Facial Droop, Moves All Extremities Equally - Psychiatric Psychiatric Exam: Normal Affect, Normal Mood - Integumentary Integumentary Exam: Dry, Urtucaria (Buttocks) Assessment and Plan - Patient Problems (1) Hypothyroidism Current Visit: Yes Status: Chronic Comment: We will resume by mouth thyroid hormone replacement Qualifiers: Hypothyroidism type: acquired Qualified Code(s): E03.9 - Hypothyroidism, unspecified (2) Asthma Current Visit: No Status: Chronic Comment: Table at present time Qualifiers: Asthma severity: mild Asthma persistence: intermittent Asthma complication type: uncomplicated Qualified Code(s): J45.20 - Mild intermittent asthma, uncomplicated (3) Fibromyalgia Current Visit: Yes Status: Chronic Onset Date: 02/08/16 Comment: Stable at present time Code(s): M79.7 - Fibromyalgia (4) Small bowel perforation Current Visit: Yes Status: Acute Comment: Continue IV antibiotics there was a slight white count increased last night but today we are down back to 14,000 hard to tell what this represents could be reactive in nature vital signs remained stable little tachycardic continue antibiotics replace magnesium IV. TPN was stopped last night at 9 PM after the last bag patient is tolerating clear liquids deferred to general surgery for further diet advancement so hemoglobin is improved might of been dilusional. Heparin subcutaneous was stopped by Dr. jeff Ramey Code(s): K63.1 - Perforation of intestine (nontraumatic) (5) Sepsis Current Visit: Yes Status: Acute Comment: Improved lactic acid is 1.2 Code(s): A41.9 - Sepsis, unspecified organism Qualifiers: Sepsis type: sepsis due to unspecified organism Qualified Code(s): A41.9 - Sepsis, unspecified organism (6) Intra-abdominal abscess post-procedure Current Visit: Yes Status: Acute Comment: Status post surgery deferred to general surgery postop management Code(s): T81.4XXA - Infection following a procedure, initial encounter; K65.1 - Peritoneal abscess Qualifiers: Encounter type: initial encounter Qualified Code(s): T81.4XXA - Infection following a procedure, initial encounter; K65.1 - Peritoneal abscess (7) Rheumatoid arthritis Current Visit: Yes Status: Acute Comment: Stable at this time Code(s): M06.9 - Rheumatoid arthritis, unspecified Qualifiers: Rheumatoid factor presence: unspecified presence Laterality: unspecified laterality
[2017-08-24] MEDS: KETOROLAC 15 MG/1 ML VIAL IVP PRN (13:44)
--- NOTE | 2017-08-24 14:45 | PDOC(PROG) ---
Subjective Post Op Day: 4 Pain Management: Peripheral BANK RECONCILIATOR Veliz Catheter: Yes Flatus: Yes Diet: Clear Liquids Ambulating: No Date and Time of Service: 08/24/2017. Patient seen at 2:15 PM. Interval History: Main complaint is that she is hungry. Tolerating clear liquids. Passing gas. No bowel movement. Reports her pain is fairly well controlled. Her white count has bumped back up again a little bit. Her hemoglobin and hematocrit are low. Objective : Data - Labs CBC and BMP: 08/24/17 04:21 08/24/17 04:21 - Vital Signs Vital Signs and I&O: Vital Signs - Last Taken Temperature 96.2 F L 08/24/17 08:00 Pulse Rate 109 H 08/24/17 08:00 Respiratory Rate 14 08/24/17 08:00 Blood Pressure 98/55 08/24/17 08:00 Pulse Ox 97 08/24/17 11:00 Intake and Output (24hr x 4 totals) 08/22/17 08/23/17 08/24/17 08/25/17 05:59 05:59 05:59 06:59 Intake Total 2809 / 2809 2897 / 2897 4653.6 / 4653.6 314 / 314 Output Total 785 / 785 1800 / 1800 3850 / 3850 350 / 350 Balance 2023 / 2023 1097 / 1097 803.6 / 803.6 -36 / -36 Objective : Exam - General General Appearance: No Acute Distress, Cooperative - Respiratory Respiratory Exam: Clear to Auscultation - Bilaterally, Breathing Non Labored - Cardiovascular Cardiovascular Exam: RRR, No Murmur - GI/Abdominal GI/Abdominal Exam: Diminished Bowel Sounds Additional GI/Abdominal Exam Details: The abdomen is obese. It is full. There is some mild diffuse tenderness. The incision looks okay. The areas of opening are probed with a Q-tip. No jcarlos pus. No surrounding erythema. - Neurological Neurological Exam: Alert, Oriented x 3 - Psychiatric Psychiatric Exam: Normal Affect, Normal Mood Assessment and Plan - Patient Problems (1) Intra-abdominal abscess post-procedure Current Visit: Yes Status: Acute Comment: Stable at this time. Start full liquids. Follow labs. We'll check a CBC at 5 PM and a.m. labs as well. Her wound may need to be opened but we'll watch for right now. Continue daily dressing changes. The patient needs to get out of bed and move. Code(s): T81.4XXA - Infection following a procedure, initial encounter; K65.1 - Peritoneal abscess Qualifiers: Encounter type: initial encounter Qualified Code(s): T81.4XXA - Infection following a procedure, initial encounter; K65.1 - Peritoneal abscess (2) Small bowel perforation Current Visit: Yes Status: Acute Comment: Surgically corrected. See above. Code(s): K63.1 - Perforation of intestine (nontraumatic)
[2017-08-24 17:35] LABS: Hematocrit [HCT] 27.4 % (37.0-47.0); MEAN CORPUSCULAR HEMOGLOBIN 27.9 PG (27-31); MEAN CORPUSCULAR HGB CONC 32.8 g/dL (33-37); MEAN CORPUSCULAR VOLUME 84.8 FL (81-99); MEAN PLATELET VOLUME 8.9 FL (7.4-12.2); RED BLOOD COUNT 3.23 10^6/uL (4.20-5.40)
[2017-08-24 18:10] LABS: BAND NEUTROPHILS % 2 % (0-10); BASOPHILS % (MANUAL) 0 % (0-1); EOSINOPHILS % (MANUAL) 0 % (0-8); METAMYELOCYTES % 1 %; MONOCYTES % (MANUAL) 7 % (0-12); MYELOCYTES % 0 %; NEUTROPHILS % (MANUAL) 68 % (50-80); PLATELET MORPHOLOGY COMMENT NORMAL MORPHOLOGY (NORM); PROMYELOCYTES % 0 %; RBC MORPHOLOGY COMMENT NORMAL MORPHOLOGY (NORM); WBC MORPHOLOGY COMMENT NORMAL MORPHOLOGY (NORM)
[2017-08-25] MEDS ORDERED: HEPARIN 500 UNIT/5 ML SYRINGE FOR CENTRAL LINE IVP ONE ×2 (04:12→13:43)
[2017-08-25] MEDS ORDERED: Petrolatum,White 10 APPLIC/10 GM TUBE TOPICAL ONE (05:07)
[2017-08-25 05:17] LABS: Hemoglobin [HGB] 8.2 g/dL (12.0-16.0); MEAN CORPUSCULAR HEMOGLOBIN 27.2 PG (27-31); MEAN CORPUSCULAR HGB CONC 31.5 g/dL (33-37); MEAN CORPUSCULAR VOLUME 86.4 FL (81-99); MEAN PLATELET VOLUME 9.3 FL (7.4-12.2); RED BLOOD COUNT 3.01 10^6/uL (4.20-5.40)
[2017-08-25 05:30] LABS: BLOOD UREA NITROGEN 5 mg/dL (7-22)
[2017-08-25 05:32] LABS: PLATELET MORPHOLOGY COMMENT NORMAL MORPHOLOGY (NORM); RBC MORPHOLOGY COMMENT NORMAL MORPHOLOGY (NORM); WBC MORPHOLOGY COMMENT SEE COMMENTS (NORM)
[2017-08-25 05:33] LABS: BAND NEUTROPHILS % 0 % (0-10); BASOPHILS % (MANUAL) 0 % (0-1); EOSINOPHILS % (MANUAL) 0 % (0-8); MONOCYTES % (MANUAL) 4 % (0-12); NEUTROPHILS % (MANUAL) 82 % (50-80)
[2017-08-25] MEDS: LEVOTHYROXINE 75 MCG TABLET PO SCH (06:02)
[2017-08-25] MEDS: POTASSIUM CHLORIDE 20 MEQ TAB PO SCH ×2 (06:48→18:15)
[2017-08-25] MEDS ORDERED: Sodium Chloride 0.9% vial 30 ML ONE (07:45)
[2017-08-25] MEDS: Pantoprazole Inj 40 MG in Normal Saline Flush 10 ML IVP SCH (09:50)
[2017-08-25] MEDS: Multivitamin Tab 1 TAB PO SCH (09:50)
[2017-08-25] MEDS: Ertapenem Inj 1 GM in Sodium Chloride 0.9% 100 ML IV SCH (09:50)
[2017-08-25] MEDS: NORMAL SALINE 10 ML SYRINGE FLUSH IV PRN ×2 (10:40→13:07)
[2017-08-25] MEDS: KETOROLAC 15 MG/1 ML VIAL IVP PRN (10:40)
[2017-08-25] MEDS: metroNIDAZOLE 500mg (Premix) 500 MG/100 ML BAG IV SCH ×2 (12:56→20:25)
--- NOTE | 2017-08-25 12:58 | PDOC(PROG) ---
Subjective Post Op Day: 5 Pain Management: Peripheral HAIR WORKER Veliz Catheter: Yes Flatus: Yes Diet: full liquids Ambulating: Yes Date and Time of Service: 08/25/2017 12:40 PM Interval History: Seems to feel a little bit better every day. Tolerating full liquids. Passing gas. Had 2 decent bowel movements today. Having some issues with pain control. Patient is a chronic narcotic user. She feels she will be better off with oral pain medications. Has been out of bed. Planning to move forward toward air bed today. She reports she is leaking around her Veliz catheter and would like it removed. She is fine with the full liquid diet. Continues to have small amounts of vaginal drainage. Dressing has had purulent drainage on it. I discussed opening the wound with the patient. We proceeded with the same and packed it. Objective : Data - Labs CBC and BMP: 08/25/17 04:19 08/25/17 04:19 - Vital Signs Vital Signs and I&O: Vital Signs - Last Taken Temperature 96.7 F L 08/25/17 12:18 Pulse Rate 107 H 08/25/17 12:18 Respiratory Rate 16 08/25/17 12:18 Blood Pressure 109/67 08/25/17 12:18 Pulse Ox 95 08/25/17 12:18 Intake and Output (24hr x 4 totals) 08/23/17 08/24/17 08/25/17 08/26/17 04:59 04:59 05:59 05:59 Intake Total 778 / 778 Output Total Balance 778 / 778 Objective : Exam - General General Appearance: No Acute Distress, Cooperative - Respiratory Respiratory Exam: Clear to Auscultation - Bilaterally, Breathing Non Labored - Cardiovascular Cardiovascular Exam: No Murmur, Tachycardia - GI/Abdominal GI/Abdominal Exam: Soft, Diminished Bowel Sounds Additional GI/Abdominal Exam Details: Patient is obese. She has some bowel sounds. Her wound has purulent drainage. I removed all the mala and opened the wound. A wet-to-dry gauze dressing has been placed. The abdomen is diffusely tender. No signs of peritoneal irritation. - Neurological Neurological Exam: Alert, Oriented x 3 - Psychiatric Psychiatric Exam: Normal Affect, Normal Mood Assessment and Plan - Patient Problems (1) Intra-abdominal abscess post-procedure Current Visit: Yes Status: Acute Comment: Overall she is doing okay. I have opened and packed the wound. Her white blood count remains elevated. I will start the patient on Flagyl and Diflucan under the circumstances. We will follow her white count. We will switch her to oral narcotics for pain control. Continue full liquid diet for now. Plan a wound VAC in 36-48 hours. We will discontinue her Veliz catheter since it is leaking. I discussed everything with the patient and her family. She agrees to proceed as outlined. I discussed her care with . I would recommend transfusion of 2 units of packed red blood cells as she is tachycardic. Code(s): T81.4XXA - Infection following a procedure, initial encounter; K65.1 - Peritoneal abscess Qualifiers: Encounter type: initial encounter Qualified Code(s): T81.4XXA - Infection following a procedure, initial encounter; K65.1 - Peritoneal abscess (2) Small bowel perforation Current Visit: Yes Status: Acute Comment: Status post small bowel resection. See above. Code(s): K63.1 - Perforation of intestine (nontraumatic)
[2017-08-25] MEDS: oxyCODONE/APAP 7.5/325 Tab 1 TAB TAB PO PRN ×2 (13:05→18:47)
[2017-08-25] MEDS: Fluconazole 400mg (Premix) 400 MG/200 ML BAG IV SCH (13:06)
--- NOTE | 2017-08-25 13:16 | PDOC(PROG) ---
Interval History: Patient is feeling pretty good had 2 bowel movements today she is off her TPN and is in good spirits. No chest pain nausea or vomiting Objective : Data - Labs CBC and BMP: 08/25/17 04:19 08/25/17 04:19 Objective : Exam - General General Appearance: No Acute Distress, Cooperative - Respiratory Respiratory Exam: Clear to Auscultation - Bilaterally, Breathing Non Labored, Normal To Percussion, Normal to Percussion and Palpation - Cardiovascular Cardiovascular Exam: RRR, No Murmur, No Gallops, Tachycardia - GI/Abdominal Additional GI/Abdominal Exam Details: Wound was opened today by general surgery and packed Assessment and Plan - Patient Problems (1) Hypothyroidism Current Visit: Yes Status: Chronic Comment: Oral replacement now Qualifiers: Hypothyroidism type: acquired Qualified Code(s): E03.9 - Hypothyroidism, unspecified (2) Fibromyalgia Current Visit: Yes Status: Chronic Onset Date: 02/08/16 Code(s): M79.7 - Fibromyalgia (3) Small bowel perforation Current Visit: Yes Status: Acute Code(s): K63.1 - Perforation of intestine ( nontraumatic) (4) Sepsis Current Visit: Yes Status: Acute Code(s): A41.9 - Sepsis, unspecified organism Qualifiers: Sepsis type: sepsis due to unspecified organism Qualified Code(s): A41.9 - Sepsis, unspecified organism (5) Intra-abdominal abscess post-procedure Current Visit: Yes Status: Acute Comment: Patient clinically continues to improve she is been tachycardic for the last couple days discuss case with general surgery will transfuse 2 units of packed red blood cells. Elevated white count with the small left shift surgeon added Diflucan and Flagyl we will see how she does in the next 48 hours. Code(s): T81.4XXA - Infection following a procedure, initial encounter; K65.1 - Peritoneal abscess Qualifiers: Encounter type: initial encounter Qualified Code(s): T81.4XXA - Infection following a procedure, initial encounter; K65.1 - Peritoneal abscess (6) Rheumatoid arthritis Current Visit: Yes Status: Acute Code(s): M06.9 - Rheumatoid arthritis, unspecified Qualifiers: Rheumatoid factor presence: unspecified presence Laterality: unspecified laterality (7) Asthma Current Visit: No Status: Chronic Qualifiers: Asthma severity: mild Asthma persistence: intermittent Asthma complication type: uncomplicated Qualified Code(s): J45.20 - Mild intermittent asthma, uncomplicated
[2017-08-25] MEDS ORDERED: FUROSEMIDE 10 MG/1 ML - 2 ML VIAL IVP ONE (13:22)
[2017-08-25] MEDS ORDERED: Sodium Chloride 0.9% 500 ML PRIMARY IV ONE (13:22)
[2017-08-25] MEDS ORDERED: ESTROGENS,CONJUGATED 0.625 MG TABLET PO ONE (15:20)
[2017-08-25] MEDS: Sodium Chloride 0.9% 1,000 ML PRIMARY IV SCH (15:25)
[2017-08-26] MEDS: oxyCODONE/APAP 7.5/325 Tab 1 TAB TAB PO PRN ×4 (00:21→19:00)
[2017-08-26] MEDS: HEPARIN 500 UNIT/5 ML SYRINGE FOR CENTRAL LINE IVP PRN ×2 (04:27→16:09)
[2017-08-26] MEDS: metroNIDAZOLE 500mg (Premix) 500 MG/100 ML BAG IV SCH ×3 (04:27→20:11)
[2017-08-26] MEDS: NORMAL SALINE 10 ML SYRINGE FLUSH IV PRN ×2 (04:27→20:11)
[2017-08-26] MEDS: LEVOTHYROXINE 75 MCG TABLET PO SCH (04:41)
[2017-08-26 04:58] LABS: Hematocrit [HCT] 28.9 % (37.0-47.0); Hemoglobin [HGB] 9.6 g/dL (12.0-16.0); MEAN CORPUSCULAR HEMOGLOBIN 28.5 PG (27-31); MEAN CORPUSCULAR HGB CONC 33.2 g/dL (33-37); MEAN CORPUSCULAR VOLUME 85.8 FL (81-99); MEAN PLATELET VOLUME 9.1 FL (7.4-12.2); RED BLOOD COUNT 3.37 10^6/uL (4.20-5.40)
[2017-08-26 05:12] LABS: BLOOD UREA NITROGEN 6 mg/dL (7-22); SERUM ALBUMIN 2.2 g/dL (3.5-4.8)
[2017-08-26 05:15] LABS: PLATELET MORPHOLOGY COMMENT NORMAL MORPHOLOGY (NORM); RBC MORPHOLOGY COMMENT NORMAL MORPHOLOGY (NORM); WBC MORPHOLOGY COMMENT NORMAL MORPHOLOGY (NORM)
[2017-08-26 05:16] LABS: BAND NEUTROPHILS % 4 % (0-10); BASOPHILS % (MANUAL) 1 % (0-1); EOSINOPHILS % (MANUAL) 1 % (0-8); MONOCYTES % (MANUAL) 7 % (0-12); NEUTROPHILS % (MANUAL) 72 % (50-80)
[2017-08-26] MEDS: POTASSIUM CHLORIDE 20 MEQ TAB PO SCH (08:16)
[2017-08-26] MEDS: Ertapenem Inj 1 GM in Sodium Chloride 0.9% 100 ML IV SCH (10:19)
[2017-08-26] MEDS: ESTROGENS,CONJUGATED 0.625 MG TABLET PO SCH (10:20)
[2017-08-26] MEDS: Pantoprazole Inj 40 MG in Normal Saline Flush 10 ML IVP SCH (10:20)
[2017-08-26] MEDS: Multivitamin Tab 1 TAB PO SCH (10:31)
--- NOTE | 2017-08-26 12:00 | PDOC(PROG) ---
Interval History: Patient is doing great she is getting up urinating on her home and having bowel movements and she will like her diet advanced to regular I will leave this up to Dr. Arriola general surgery no other complaints Objective : Data - Labs CBC and BMP: 08/26/17 04:27 18 04:27 Objective : Exam - General General Appearance: Cooperative - Respiratory Respiratory Exam: Clear to Auscultation - Bilaterally, Breathing Non Labored, Normal To Percussion, Normal to Percussion and Palpation - Cardiovascular Cardiovascular Exam: RRR, No Murmur, No Clicks, No Gallops, No Rubs, PMI Non- Displaced - Extremities Extremities Exam: Normal Capillary Refill, No Clubbing Present, No Edema Present Assessment and Plan - Patient Problems (1) Intra-abdominal abscess post-procedure Current Visit: Yes Status: Acute Comment: Patient is doing great white count has improved tachycardia is improved after receiving the 2 units of packed red blood cells. She is urinating on her own or Veliz is out she is having solid stools and bowel movements. She will like her diet advanced we will leave this up to general surgery as well as further wound care and possible wound VAC once white count is within normal limits could probably transition to oral antibiotic if recommended by general surgery or even stopped. Continue all other meds. For her usual and [facility] meds also we will stop. Potassium pills since her potassium is been replaced Code(s): T81.4XXA - Infection following a procedure, initial encounter; K65.1 - Peritoneal abscess Qualifiers: Encounter type: initial encounter Qualified Code(s): T81.4XXA - Infection following a procedure, initial encounter; K65.1 - Peritoneal abscess (2) Hypothyroidism Current Visit: Yes Status: Chronic Qualifiers: Hypothyroidism type: acquired Qualified Code(s): E03.9 - Hypothyroidism, unspecified (3) Fibromyalgia Current Visit: Yes Status: Chronic Onset Date: 02/08/16 Code(s): M79.7 - Fibromyalgia (4) Small bowel perforation Current Visit: Yes Status: Acute Code(s): K63.1 - Perforation of intestine ( nontraumatic) (5) Sepsis Current Visit: Yes Status: Acute Code(s): A41.9 - Sepsis, unspecified organism Qualifiers: Sepsis type: sepsis due to unspecified organism Qualified Code(s): A41.9 - Sepsis, unspecified organism (6) Rheumatoid arthritis Current Visit: Yes Status: Acute Code(s): M06.9 - Rheumatoid arthritis, unspecified Qualifiers: Rheumatoid factor presence: unspecified presence Laterality: unspecified laterality (7) Asthma Current Visit: No Status: Chronic Qualifiers: Asthma severity: mild Asthma persistence: intermittent Asthma complication type: uncomplicated Qualified Code(s): J45.20 - Mild intermittent asthma, uncomplicated
[2017-08-26] MEDS: ASCORBIC ACID 500 MG TABLET PO SCH (13:43)
[2017-08-26] MEDS: Fluconazole 400mg (Premix) 400 MG/200 ML BAG IV SCH (13:44)
--- NOTE | 2017-08-26 15:45 | PT AM DAY ---
Diagnosis : Weakness AM - Physical Therapy S: The patient reports her greatest complaint at this time is of overwhelming burning pain in the buttocks and vagina region due to skin irritation. The therapist also spoke with the ER nurse on staff and they state that she is having to lay on her side and get up often just to offload the area. O: The patient was able to perform bed mobility with min assist, mainly consisting of manipulating all of her equipment. The patient was able to perform sit to stand transfers x10 with decreased speed due to the pain. We discussed the use of an abdominal brace, but the patient states she doesn't feel like she needs it. She was able to ambulate 3 feet within her room from her bed to a chair and from a seated position, we discussed verbal techniques for core engagement while performing unsupported seated yellow theraband shoulder abduction and around the clock drills. No increase in theraband was attempted due to the patient's IV and PICC line. Due to discomfort, the patient requested to be placed back in bed on her side. She was able to ambulate with stand by assistance only but did require moderate assistance when in bed for bed mobility for laying on her left side with the irritated skin exposed to a fan. A: The patient refused to participate in any more activities than she already did due to her pain. P: Continue seeing patient BID during the week and one time per day over the weekend for transfers, ambulation, and range of motion/strengthening exercises. MTDD
--- NOTE | 2017-08-26 16:20 | PDOC(PROG) ---
Subjective Post Op Day: 6 Pain Management: PO Veliz Catheter: No Flatus: Yes Diet: full liquid Ambulating: Yes Date and Time of Service: 08/26/2017. Patient seen at 3:55 PM. Interval History: Doing better every day. Tolerating full liquids. Passing gas. Has had multiple bowel movements. Ambulating and taking a shower "wiped her out". Comfortable on the oral Percocet. The patient would like to try a regular diet. She did get nauseated with potassium. That has been discontinued. Objective : Data - Labs CBC and BMP: 08/26/17 04:27 08/26/17 04:27 - Vital Signs Vital Signs and I&O: Vital Signs - Last Taken Temperature 97.6 F 08/26/17 11:05 Pulse Rate 91 08/26/17 11:05 Respiratory Rate 16 08/26/17 11:05 Blood Pressure 105/69 08/26/17 11:05 Pulse Ox 92 08/26/17 11:05 Intake and Output (24hr x 4 totals) 08/24/17 08/25/17 08/26/17 08/27/17 04:59 05:59 05:59 05:59 Intake Total 4048 / 4048 1160 / 1160 Output Total 2225 / 2225 550 / 550 Balance 1823 / 1823 610 / 610 Objective : Exam - General General Appearance: No Acute Distress, Cooperative - Respiratory Respiratory Exam: Clear to Auscultation - Bilaterally, Breathing Non Labored - Cardiovascular Cardiovascular Exam: RRR, No Murmur - GI/Abdominal GI/Abdominal Exam: Normal Bowel Sounds, Soft Additional GI/Abdominal Exam Details: Morbidly obese. Wound is showing some signs of granulation tissue. Looks much better than yesterday. - Neurological Neurological Exam: Alert, Oriented x 3 - Psychiatric Psychiatric Exam: Normal Affect, Normal Mood Assessment and Plan - Patient Problems (1) Intra-abdominal abscess post-procedure Current Visit: Yes Status: Acute Comment: The white count is coming down. Continue current care. We will plan to keep her on antibiotics until her white count is normal for 48 hours. Advance her diet. Encouraged increased activity on the patient's part. Have talked to physical therapy and orders have been written for a wound VAC. Check a.m. labs. Discussed all with the patient. Code(s): T81.4XXA - Infection following a procedure, initial encounter; K65.1 - Peritoneal abscess Qualifiers: Encounter type: initial encounter Qualified Code(s): T81.4XXA - Infection following a procedure, initial encounter; K65.1 - Peritoneal abscess (2) Small bowel perforation Current Visit: Yes Status: Acute Comment: Status post small bowel resection. See above. Code(s): K63.1 - Perforation of intestine (nontraumatic)
--- NOTE | 2017-08-26 16:37 | PT AM DAY ---
Diagnosis : Weakness AM - Physical Therapy S: The patient reports her bottom is still burning but overall, her mobility feels like she is doing well. O: Today's therapy consisted of the patient performing bed mobility with min assist as well as being able to perform sit to stand transfers independently with increased time due to pain provocation. She was able to ambulate 3 feet within the room, but not out in the flores due to concerns with leakage. She was able to perform weight-shifting activities appropriately without the use of any assistive device and received verbal reeducation about proper core engagement and the initiation of Kegel exercises. A: The patient tolerated today's treatment well. P: Continue seeing patient BID during the week and one time per day over the weekend for transfers, ambulation, and range of motion/strengthening exercises. PETER
--- NOTE | 2017-08-26 16:42 | OT.PROG ---
Progress Note Progress Note: Occupational Therapy: 0 min AM and PM OT sessions where attempted. pt was unable to completed therapy services due to fatigue, illness and pain.
[2017-08-27] MEDS: HEPARIN 500 UNIT/5 ML SYRINGE FOR CENTRAL LINE IVP PRN (04:02)
[2017-08-27] MEDS: oxyCODONE/APAP 7.5/325 Tab 1 TAB TAB PO PRN ×3 (04:02→19:07)
[2017-08-27] MEDS: metroNIDAZOLE 500mg (Premix) 500 MG/100 ML BAG IV SCH (04:02)
[2017-08-27 05:27] LABS: Hematocrit [HCT] 30.8 % (37.0-47.0); MEAN CORPUSCULAR HEMOGLOBIN 28.2 PG (27-31); MEAN CORPUSCULAR HGB CONC 32.5 g/dL (33-37); MEAN CORPUSCULAR VOLUME 86.8 FL (81-99); MEAN PLATELET VOLUME 9.2 FL (7.4-12.2); RED BLOOD COUNT 3.55 10^6/uL (4.20-5.40)
[2017-08-27 05:33] LABS: BLOOD UREA NITROGEN 4 mg/dL (7-22)
[2017-08-27] MEDS: LEVOTHYROXINE 75 MCG TABLET PO SCH (05:36)
[2017-08-27 05:44] LABS: PLATELET MORPHOLOGY COMMENT NORMAL MORPHOLOGY (NORM); RBC MORPHOLOGY COMMENT NORMAL MORPHOLOGY (NORM); WBC MORPHOLOGY COMMENT NORMAL MORPHOLOGY (NORM)
[2017-08-27 05:45] LABS: BAND NEUTROPHILS % 1 % (0-10); BASOPHILS % (MANUAL) 0 % (0-1); EOSINOPHILS % (MANUAL) 1 % (0-8); MONOCYTES % (MANUAL) 8 % (0-12); NEUTROPHILS % (MANUAL) 77 % (50-80)
[2017-08-27] MEDS: PANTOPRAZOLE 40 MG TABLET PO SCH (07:53)
--- NOTE | 2017-08-27 09:10 | PDOC(PROG) ---
Subjective Post Op Day: 7 Pain Management: PO Veliz Catheter: No Flatus: Yes Diet: Regular Ambulating: Yes Date and Time of Service: 08/27/2017. Patient seen at 8:40 AM. Interval History: Overall doing well. No specific complaints or problems. No nausea or vomiting. Minimal serous vaginal drainage. Feeling pretty well. Passing gas. Had multiple bowel movements. Taking small amounts of regular food. She is ambulating. She is voiding. Objective : Data - Labs CBC and BMP: 08/27/17 04:11 08/27/17 04:11 - Vital Signs Vital Signs and I&O: Vital Signs - Last Taken Temperature 98.2 F 08/27/17 07:31 Pulse Rate 79 08/27/17 07:31 Respiratory Rate 18 08/27/17 07:31 Blood Pressure 97/66 08/27/17 07:31 Pulse Ox 90 08/27/17 07:31 Intake and Output (24hr x 4 totals) 08/25/17 08/26/17 08/27/17 08/28/17 05:59 05:59 05:59 05:59 Intake Total 4048 / 4048 2725 / 2725 Output Total 2225 / 2225 1225 / 1225 Balance 1823 / 1823 1500 / 1500 Objective : Exam - General General Appearance: No Acute Distress, Cooperative - Respiratory Respiratory Exam: Clear to Auscultation - Bilaterally, Breathing Non Labored - Cardiovascular Cardiovascular Exam: RRR, No Murmur - GI/Abdominal GI/Abdominal Exam: Normal Bowel Sounds Additional GI/Abdominal Exam Details: Morbidly obese. Good bowel tones. Some diffuse and nonfocal tenderness. No signs of peritoneal irritation. The wound was seen last night and is starting to granulate. Continue dressing changes. - Neurological Neurological Exam: Alert, Oriented x 3 - Psychiatric Psychiatric Exam: Normal Affect, Normal Mood Assessment and Plan - Patient Problems (1) Intra-abdominal abscess post-procedure Current Visit: Yes Status: Acute Comment: Doing very well. White count remains slightly elevated. Continue IV Invanz and Diflucan. We'll discontinue the Flagyl. Follow her lab work. Working on getting a wound VAC. She has now completed 7 days of antibiotics in the hospital. Plan 1-2 more days pending her white count. Continue care as at present. Code(s): T81.4XXA - Infection following a procedure, initial encounter; K65.1 - Peritoneal abscess Qualifiers: Encounter type: initial encounter Qualified Code(s): T81.4XXA - Infection following a procedure, initial encounter; K65.1 - Peritoneal abscess (2) Small bowel perforation Current Visit: Yes Status: Acute Comment: Status post resection. See above. Code(s): K63.1 - Perforation of intestine (nontraumatic)
[2017-08-27] MEDS: Ertapenem Inj 1 GM in Sodium Chloride 0.9% 100 ML IV SCH (09:28)
[2017-08-27] MEDS: Multivitamin Tab 1 TAB PO SCH (09:29)
[2017-08-27] MEDS: ASCORBIC ACID 500 MG TABLET PO SCH (09:29)
[2017-08-27] MEDS: ESTROGENS,CONJUGATED 0.625 MG TABLET PO SCH (09:29)
--- NOTE | 2017-08-27 09:50 | PDOC(PROG) ---
Date and Time of Service: 08/27/2017 9:46 AM Interval History: Subjective Overall patient feels better than before. The nurses were changing her dressings. She denied chest pain, shortness of breath. Abdominal pain seemed to be controlled. She is on low residue diet. Some vaginal blood but she apparently was told by Dr. Sorto it is expected after hysterectomy. Objective : Data - Labs CBC and BMP: 08/27/17 04:11 08/27/17 04:11 Objective : Exam - General General Appearance: No Acute Distress, Cooperative, Obese - Head Head Exam: Normal Inspection, Atraumatic - Eye Eye Exam: Normal Appearance - ENT ENT Exam: Normal Exam - Neck Neck Exam: Normal Inspection - Respiratory Respiratory Exam: Clear to Auscultation - Bilaterally - Cardiovascular Cardiovascular Exam: RRR - GI/Abdominal GI/Abdominal Exam: Normal Bowel Sounds, Non Distended, Soft Additional GI/Abdominal Exam Details: The dressing was removed, the base of the wound showed some sloughing. Otherwise no significant drainage noted - Rectal Rectal Exam: Deferred - External Exam: Deferred - Extremities Extremities Exam: Normal Inspection - Back Back Exam: Normal Inspection - Neurological Neurological Exam: Alert, Oriented x 3, CN II-XII Intact, Speech Intact / Clear , Moves All Extremities Equally - Psychiatric Psychiatric Exam: Normal Affect Assessment and Plan - Patient Problems (1) Hypothyroidism Current Visit: Yes Status: Chronic Comment: Same med Qualifiers: Hypothyroidism type: acquired Qualified Code(s): E03.9 - Hypothyroidism, unspecified (2) Asthma Current Visit: No Status: Chronic Comment: This is not active Qualifiers: Asthma severity: mild Asthma persistence: intermittent Asthma complication type: uncomplicated Qualified Code(s): J45.20 - Mild intermittent asthma, uncomplicated (3) Small bowel perforation Current Visit: Yes Status: Acute Comment: She is post surgery day 7. The wound is open and nurses will packet today. The plan is to continue dressing changes twice a day until a wound VAC is here. Code(s): K63.1 - Perforation of intestine (nontraumatic) (4) Sepsis Current Visit: Yes Status: Acute Comment: This is resolved Code(s): A41.9 - Sepsis, unspecified organism Qualifiers: Sepsis type: sepsis due to unspecified organism Qualified Code(s): A41.9 - Sepsis, unspecified organism (5) Intra-abdominal abscess post-procedure Current Visit: Yes Status: Acute Comment: She is on IV antibiotics continue per my discussion with Dr. Arriola. He wants her white count to normalize before he decide about stopping it. We DC 'd the Flagyl continued only with Invanz and Diflucan. Code(s): T81.4XXA - Infection following a procedure, initial encounter; K65.1 - Peritoneal abscess Qualifiers: Encounter type: initial encounter Qualified Code(s): T81.4XXA - Infection following a procedure, initial encounter; K65.1 - Peritoneal abscess
--- NOTE | 2017-08-27 10:08 | OT AM DAY ---
Diagnosis : Weakness AM - Occupational Therapy S: The patient reports they think she might have another infection in her stomach and they may need to go in for surgery again. O: Today the patient functionally ambulated approximately 40 feet. The patient needed to take it very slow and she required contact guard assist with use of the IV pole or handrails. Once back to bed the patient performed 3 sit to stands. The patient has a very bad rash on her bottom; they have tried different creams but nothing is helping. The therapist thinks the creams are making her bottom worse. The patient was issued a ROHO cushion and instructed in its use. While laying in bed we worked on functional activities including yellow theraband biceps curls, internal/external rotation, triceps, and active range of motion for shoulder flexion and abduction x10 repetitions while working on pursed lipped breathing. We attempted getting on the chair, but the patient's stomach was hurting too badly at this point, so she continued to lay in bed. The patient was left in bed with bed alarm on and call light within reach. A: The patient needs to take things very slowly. We are not doing any resistive activities with shoulders, especially above 90 degrees. We are trying to work on her activity tolerance. The patient does still have a lot of pain in her stomach. P: Continue seeing patient BID during the week and one time per day over the weekend for upper extremity strengthening, ADLs, and overall functional mobility. MTDD
[2017-08-27] MEDS ORDERED: ASCORBIC ACID 500 MG TABLET PO SCH (12:00)
[2017-08-27] MEDS: Fluconazole 400mg (Premix) 400 MG/200 ML BAG IV SCH (12:04)
--- NOTE | 2017-08-27 14:17 | PT AM DAY ---
Diagnosis : Weakness/Bowel Perforation AM - Physical Therapy S: The patient reports physically she is feeling much better and getting around on her own with increased time due to pain. She states her biggest complaint at this time is of her open abdomen following Dr. Arriola removing the mala on the . She states there was talk from Dr. Arriola about the possibility of a wound vac being ordered. At this time now, all she wants is to go home. O: During today's treatment the patient was observed to be able to perform all bed mobility and transfers independently with just increased time due to her pain. At the time, physical therapy observed nursing re-dressing the wound per instruction with a wet to dry dressing under Dr. Arriola. Upon observation, the wound at this time measures 23.2 centimeters x 7.9 centimeters x 4.2 centimeters and is a surgically created wound. The patient states when Dr. Arriola first removed the mala, she had a lot of what she describes as purulent drainage; however, at this time it had a moderate amount of serosanguineous drainage with well defined edges and no maceration noted. A: No exercises were performed today due to the patient's pain level; however, the therapist did discuss different options for a negative pressure device which will be directly dependent upon prior approval from insurance. Speaking with the nurse for greater detail of the history of the abdomen, the nurse states that the patient originally had surgery under Dr. Santamaria on the of this month with the mala being put in place; however, due to concerns of dehiscence and drainage, Dr. Arriola decided to remove the mala and cleanse the area at bedside on 08/25/17. P: Continue seeing patient BID during the week and one time per day over the weekend for strengthening and range of motion activities within her tolerance. We will also initiate ordering of a negative pressure device. PETER
[2017-08-28] MEDS: oxyCODONE/APAP 7.5/325 Tab 1 TAB TAB PO PRN ×4 (01:16→19:53)
[2017-08-28] MEDS: LEVOTHYROXINE 75 MCG TABLET PO SCH (04:41)
[2017-08-28] MEDS: HEPARIN 500 UNIT/5 ML SYRINGE FOR CENTRAL LINE IVP PRN (04:41)
[2017-08-28] MEDS: NORMAL SALINE 10 ML SYRINGE FLUSH IV PRN ×3 (04:41→13:20)
[2017-08-28 05:14] LABS: BLOOD UREA NITROGEN 3 mg/dL (7-22); Hemoglobin [HGB] 9.4 g/dL (12.0-16.0); MEAN CORPUSCULAR HEMOGLOBIN 28.2 PG (27-31); MEAN CORPUSCULAR HGB CONC 32.4 g/dL (33-37); MEAN CORPUSCULAR VOLUME 87.1 FL (81-99); MEAN PLATELET VOLUME 8.9 FL (7.4-12.2); RED BLOOD COUNT 3.33 10^6/uL (4.20-5.40); SERUM ALBUMIN 2.3 g/dL (3.5-4.8)
[2017-08-28 05:36] LABS: PLATELET MORPHOLOGY COMMENT NORMAL MORPHOLOGY (NORM); WBC MORPHOLOGY COMMENT NORMAL MORPHOLOGY (NORM)
[2017-08-28 05:37] LABS: BAND NEUTROPHILS % 1 % (0-10); BASOPHILS % (MANUAL) 1 % (0-1); EOSINOPHILS % (MANUAL) 2 % (0-8); MONOCYTES % (MANUAL) 5 % (0-12); NEUTROPHILS % (MANUAL) 72 % (50-80); RBC MORPHOLOGY COMMENT NORMAL MORPHOLOGY (NORM)
[2017-08-28] MEDS: PANTOPRAZOLE 40 MG TABLET PO SCH (07:16)
[2017-08-28] MEDS: Ertapenem Inj 1 GM in Sodium Chloride 0.9% 100 ML IV SCH (08:47)
[2017-08-28] MEDS: ESTROGENS,CONJUGATED 0.625 MG TABLET PO SCH (08:47)
[2017-08-28] MEDS: Multivitamin Tab 1 TAB PO SCH (08:47)
[2017-08-28] MEDS: ASCORBIC ACID 500 MG TABLET PO SCH (08:47)
--- NOTE | 2017-08-28 10:22 | PDOC(PROG) ---
Date and Time of Service: 08/28/2017 10:22 AM Interval History: Subjective She has some swelling she said in both legs worse on the right compared to the left. She said she has a history of phlebitis before. Abdominal pain seemed to be controlled with current pain medication she is denying other symptoms. Objective : Data - Labs CBC and BMP: 08/28/17 04:55 08/28/17 04:55 Objective : Exam - General General Appearance: No Acute Distress, Cooperative, Obese - Head Head Exam: Normal Inspection - Eye Eye Exam: Normal Appearance - ENT ENT Exam: Normal Exam - Neck Neck Exam: Normal Inspection - Respiratory Respiratory Exam: Clear to Auscultation - Bilaterally - Cardiovascular Cardiovascular Exam: RRR - GI/Abdominal GI/Abdominal Exam: Normal Bowel Sounds, Non Distended, Soft, No Organomegaly Additional GI/Abdominal Exam Details: Dressing applied to the wound. - Rectal Rectal Exam: Deferred - External Exam: Deferred Exam: Deferred - Extremities Additional Extremities Exam Details: There is some edema, and varicosities mostly on the right. - Back Back Exam: Normal Inspection - Neurological Neurological Exam: Alert, Oriented x 3, CN II-XII Intact, No Facial Droop, Speech Intact / Clear, Moves All Extremities Equally - Psychiatric Psychiatric Exam: Normal Affect Assessment and Plan - Patient Problems (1) Hypothyroidism Current Visit: Yes Status: Chronic Comment: Same med Qualifiers: Hypothyroidism type: acquired Qualified Code(s): E03.9 - Hypothyroidism, unspecified (2) Intra-abdominal abscess post-procedure Current Visit: Yes Status: Acute Comment: Status post surgery. Wound is open with daily dressings changes. Waiting for wound VAC. White count is at the same range. I will leave it up to Dr. Arriola to decide about discharge. Code(s): T81.4XXA - Infection following a procedure, initial encounter; K65.1 - Peritoneal abscess Qualifiers: Encounter type: initial encounter Qualified Code(s): T81.4XXA - Infection following a procedure, initial encounter; K65.1 - Peritoneal abscess (3) Leg swelling Current Visit: Yes Status: Acute Comment: Will order ultrasound of her legs. Code(s): M79.89 - Other specified soft tissue disorders
--- NOTE | 2017-08-28 11:58 | PDOC(PROG) ---
Subjective Post Op Day: 8 Pain Management: PO Veliz Catheter: No Flatus: Yes Diet: Regular Ambulating: Yes Date and Time of Service: 08/28/2017 11:45 AM Interval History: Overall she reports she is doing pretty well. Her main complaint is that she wants a regular diet. She is passing gas. She is continuing to have bowel movements. Her pain seems fairly well controlled. I am working with physical therapy to get a wound VAC as an outpatient. We will have physical therapy start a dressing tomorrow that can be continued as an outpatient in [facility]. If everything goes well we will consider discharge home tomorrow. Her white count remained slightly elevated at just over 13,000. I plan to discontinue the Invanz and Diflucan after today's doses. She has been on the Invanz over a week. We'll start the patient on Augmentin 825 mg by mouth twice a day starting tomorrow. Plan to continue that an additional week as an outpatient. The nurse asked me to look at her wound. The wound shows good granulation tissue. The upper sutures are slightly loose. There are no defects in the fascia. Objective : Data - Labs CBC and BMP: 08/28/17 04:55 08/28/17 04:55 - Vital Signs Vital Signs and I&O: Vital Signs - Last Taken Temperature 97.1 F 08/28/17 08:57 Pulse Rate 99 08/28/17 08:57 Respiratory Rate 16 08/28/17 08:57 Blood Pressure 114/69 08/28/17 08:57 Pulse Ox 95 08/28/17 04:51 Intake and Output (24hr x 4 totals) 08/26/17 08/27/17 08/28/17 08/29/17 05:59 05:59 05:59 05:59 Intake Total 4048 / 4048 2725 / 2725 3203 / 3203 120 / 120 Output Total 2225 / 2225 1225 / 1225 1950 / 1950 Balance 1823 / 1823 1500 / 1500 1253 / 1253 120 / 120 Objective : Exam - General General Appearance: No Acute Distress, Cooperative - Respiratory Respiratory Exam: Clear to Auscultation - Bilaterally, Breathing Non Labored - Cardiovascular Cardiovascular Exam: RRR, No Murmur - GI/Abdominal GI/Abdominal Exam: Normal Bowel Sounds, Soft Additional GI/Abdominal Exam Details: The abdomen is obese. There are decent bowel tones. The abdomen is soft. No focal tenderness. Again the wound is showing signs of good granulation tissue. The Prolene sutures can be seen in the base of the wound. There is some play in the upper sutures. There are no defects in the fascia. Her only pain is at the incision line. - Neurological Neurological Exam: Alert, Oriented x 3 - Psychiatric Psychiatric Exam: Normal Affect, Normal Mood Assessment and Plan - Patient Problems (1) Intra-abdominal abscess post-procedure Current Visit: Yes Status: Acute Comment: I think overall she is doing very well. She has finished 8 days of IV antibiotics. She is eating a regular diet. Her bowels are functioning. We are working on outpatient wound care. I think as long as things continue to progress she can likely be discharged home for outpatient care starting tomorrow. I want to check her wound and the sutures again tomorrow prior to discharge. We'll also check a.m. labs. Code(s): T81.4XXA - Infection following a procedure, initial encounter; K65.1 - Peritoneal abscess Qualifiers: Encounter type: initial encounter Qualified Code(s): T81.4XXA - Infection following a procedure, initial encounter; K65.1 - Peritoneal abscess (2) Small bowel perforation Current Visit: Yes Status: Acute Comment: Status post small bowel resection with anastomosis. See above. Code(s): K63.1 - Perforation of intestine (nontraumatic)
[2017-08-28] MEDS: Fluconazole 400mg (Premix) 400 MG/200 ML BAG IV SCH (13:20)
--- NOTE | 2017-08-28 14:55 | DI ---
US Up/Low Extremity Veins B/L,08/28/2017 10:20 AM: Clinical History: Bilateral leg swelling. Previous Exam: None at this facility. Findings: Multiple grayscale and color Doppler sonographic images are obtained through the deep veins of both l ower extremities, and demonstrate complete coaptation upon graded compression throughout the deep vei ns. The right greater saphenous vein was noncompressible, but patient endorses a prior history of having received saphenous vein ablation on the right. There is normal respiratory variation and augmentation. Impression: No evidence of deep venous thrombosis.
[2017-08-29] MEDS: oxyCODONE/APAP 7.5/325 Tab 1 TAB TAB PO PRN ×2 (00:59→07:30)
[2017-08-29] MEDS: LEVOTHYROXINE 75 MCG TABLET PO SCH (05:24)
[2017-08-29 05:27] LABS: BASOPHILS # (AUTO) 0.04 10*3/UL; BASOPHILS % (AUTO) 0.4 % (0-1); EOSINOPHILS # (AUTO) 0.18 10*3/UL; EOSINOPHILS % (AUTO) 1.7 % (0-8); Hematocrit [HCT] 29.6 % (37.0-47.0); Hemoglobin [HGB] 9.3 g/dL (12.0-16.0); LYMPHOCYTES # (AUTO) 1.85 10*3/uL; MEAN CORPUSCULAR HEMOGLOBIN 27.4 PG (27-31); MEAN CORPUSCULAR HGB CONC 31.4 g/dL (33-37); MEAN CORPUSCULAR VOLUME 87.3 FL (81-99); MEAN PLATELET VOLUME 8.7 FL (7.4-12.2); MONOCYTES % (AUTO) 10.3 % (5-15); NEUTROPHILS # (AUTO) 7.42 10*3/UL; NEUTROPHILS % (AUTO) 69.1 % (50-80); RED BLOOD COUNT 3.39 10^6/uL (4.20-5.40)
[2017-08-29 05:31] LABS: PLATELET MORPHOLOGY COMMENT NORMAL MORPHOLOGY (NORM); RBC MORPHOLOGY COMMENT NORMAL MORPHOLOGY (NORM); WBC MORPHOLOGY COMMENT NORMAL MORPHOLOGY (NORM)
[2017-08-29 05:35] LABS: BLOOD UREA NITROGEN 3 mg/dL (7-22)
[2017-08-29] MEDS: PANTOPRAZOLE 40 MG TABLET PO SCH (07:03)
[2017-08-29] MEDS: Multivitamin Tab 1 TAB PO SCH (08:53)
[2017-08-29] MEDS: ESTROGENS,CONJUGATED 0.625 MG TABLET PO SCH (08:55)
[2017-08-29] MEDS: ASCORBIC ACID 500 MG TABLET PO SCH (08:56)
[2017-08-29] MEDS ORDERED: Amoxicill/Clav 875/125mg Tab 1 TAB TAB PO SCH (09:00)
--- NOTE | 2017-08-29 09:55 | PDOC(PROG) ---
Date and Time of Service: 08/29/2017 9:55 AM Interval History: Subjective Patient is tolerating diet, she said she had 2 bowel movements already. Pain seemed to be controlled. No new symptoms. Objective : Data - Labs CBC and BMP: 08/29/17 05:06 08/29/17 05:06 Objective : Exam - General General Appearance: No Acute Distress, Cooperative, Obese - Head Head Exam: Normal Inspection - Eye Eye Exam: Normal Appearance - ENT ENT Exam: Normal Exam - Neck Neck Exam: Normal Inspection - Respiratory Respiratory Exam: Clear to Auscultation - Bilaterally - Cardiovascular Cardiovascular Exam: RRR - GI/Abdominal GI/Abdominal Exam: Normal Bowel Sounds, Non Distended, Soft Additional GI/Abdominal Exam Details: Dressing applied to the wound. - Rectal Rectal Exam: Deferred - External Exam: Deferred - Extremities Extremities Exam: Normal Inspection - Back Back Exam: Normal Inspection - Neurological Neurological Exam: Alert, Oriented x 3, CN II-XII Intact, Speech Intact / Clear , Moves All Extremities Equally - Psychiatric Psychiatric Exam: Normal Affect Assessment and Plan - Patient Problems (1) Hypothyroidism Current Visit: Yes Status: Chronic Comment: Same meds Qualifiers: Hypothyroidism type: acquired Qualified Code(s): E03.9 - Hypothyroidism, unspecified (2) Intra-abdominal abscess post-procedure Current Visit: Yes Status: Acute Comment: Her white count is down to 10.7. The plan is to discharge her if it is okay with the Dr. Arriola after he examines her wound. We'll discharge her on 10 days of Augmentin. She said for pain medication she has an appointment with her pain specialist today and they will fill her Percocet. Code(s): T81.4XXA - Infection following a procedure, initial encounter; K65.1 - Peritoneal abscess Qualifiers: Encounter type: initial encounter Qualified Code(s): T81.4XXA - Infection following a procedure, initial encounter; K65.1 - Peritoneal abscess (3) Leg swelling Current Visit: Yes Status: Acute Comment: Ultrasound is negative for DVT. Code(s): M79.89 - Other specified soft tissue disorders
[2017-08-29] MEDS ORDERED: Lactated Ringers 1,000 ML PRIMARY IV ONE ×2 (11:56→15:04)
[2017-08-29] MEDS ORDERED: LIDOCAINE W/ SODIUM BICARB 0.5 ML SYR SUBD PRN ×2 (11:58→14:21)
[2017-08-29] MEDS ORDERED: LIDOCAINE HCL 2 % 10 ML JELLY URO-JECT TOPICAL PRN (11:58)
[2017-08-29] MEDS ORDERED: NORMAL SALINE 10 ML SYRINGE FLUSH IVP PRN ×2 (11:58→14:21)
[2017-08-29] MEDS ORDERED: Ertapenem Inj 1 GM in Sodium Chloride 0.9% 100 ML IV SCH (12:00)
[2017-08-29] MEDS ORDERED: Lactated Ringers 1,000 ML PRIMARY IV SCH (12:00)
[2017-08-29] MEDS ORDERED: ERTAPENEM 1 GM VIAL ONE (12:05)
[2017-08-29] MEDS ORDERED: Sodium Chloride 0.9% 100 ML IV ONE (12:05)
--- NOTE | 2017-08-29 12:08 | PDOC(PROG) ---
Subjective Post Op Day: 9 Pain Management: PO Veliz Catheter: No Flatus: Yes Diet: Regular Ambulating: Yes Date and Time of Service: 08/29/2017 12 PM Interval History: Overall doing pretty well. Eating. Bowels are functioning. I got her in bed to check her wound. She has dehisced the upper portion of her wound. She needs to go back to surgery to have her wound dehiscence repaired. There is exposed small bowel. No evidence of the fistula this time Objective : Data - Labs CBC and BMP: 08/29/17 05:06 08/29/17 05:06 - Vital Signs Vital Signs and I&O: Vital Signs - Last Taken Temperature 97.1 F 08/29/17 11:22 Pulse Rate 95 08/29/17 11:22 Respiratory Rate 16 08/29/17 11:22 Blood Pressure 109/70 08/29/17 11:22 Pulse Ox 96 08/29/17 11:22 Intake and Output (24hr x 4 totals) 08/27/17 08/28/17 08/29/17 08/30/17 05:59 05:59 05:59 05:59 Intake Total 2725 / 2725 3203 / 3203 2510 / 2510 Output Total 1225 / 1225 1950 / 1950 3050 / 3050 1100 / 1100 Balance 1500 / 1500 1253 / 1253 -540 / -540 -1100 / -1100 Objective : Exam - General General Appearance: No Acute Distress, Cooperative - Respiratory Respiratory Exam: Clear to Auscultation - Bilaterally, Breathing Non Labored - Cardiovascular Cardiovascular Exam: RRR, No Murmur - GI/Abdominal GI/Abdominal Exam: Normal Bowel Sounds Additional GI/Abdominal Exam Details: Morbidly obese. Open wound. The upper portion has dehisced. There is exposed bowel. Assessment and Plan - Patient Problems (1) Intra-abdominal abscess post-procedure Current Visit: Yes Status: Acute Comment: Status post exploratory laparotomy with drainage of abscess. Overall she is doing very well. Unfortunately she has dehisced the upper portion of her wound. She has to go back to surgery for wound closure. The possibility of lysis of adhesions and bowel resection has been discussed.The procedure has been discussed with the patient in complete yet simple terms including benefits , risks, and alternatives. All questions have been answered. Informed consent has been obtained. Code(s): T81.4XXA - Infection following a procedure, initial encounter; K65.1 - Peritoneal abscess Qualifiers: Encounter type: initial encounter Qualified Code(s): T81.4XXA - Infection following a procedure, initial encounter; K65.1 - Peritoneal abscess
[2017-08-29] MEDS ORDERED: PROPOFOL 10 MG/1 ML (200 MG/20 ML) VIAL IV ONE (12:10)
[2017-08-29] MEDS ORDERED: LIDOCAINE MPF 2% - 5 ML (20 MG/1 ML) ONE (12:11)
[2017-08-29] MEDS ORDERED: fentaNYL Inj 250 MCG/5 ML VIAL ONE (12:11)
[2017-08-29] MEDS ORDERED: MIDAZOLAM 5 MG/1 ML ONE (12:11)
[2017-08-29] MEDS ORDERED: SUCCINYLCHOLINE CHLORIDE 20 MG/1 ML - 10 ML ONE (12:13)
[2017-08-29] MEDS ORDERED: ROCURONIUM 10 MG/1 ML - 5 ML VIAL IVP ONE (12:13)
[2017-08-29] MEDS ORDERED: Sodium Chloride 0.9% vial 10 ML ONE (12:28)
[2017-08-29] MEDS ORDERED: DEXAMETHASONE PF 10 MG/1 ML VIAL ONE (12:28)
[2017-08-29] MEDS ORDERED: ONDANSETRON 4 MG/2 ML VIAL ONE (12:28)
[2017-08-29] MEDS ORDERED: PANTOPRAZOLE IV 40 MG VIAL ONE (12:29)
--- NOTE | 2017-08-29 14:20 | CRNA.PROGR ---
Anesthesia Recovery Phase I - Post Anesthesia Evaluation Patient's Condition on Arrival in Phase I: Stable (Pain managed, stable but tachy) Patient's Condition on Arrival in Phase II: Stable Pain Level: 2
[2017-08-29] MEDS ORDERED: HYDROmorphone 2 MG/1 ML IVP PRN (14:21)
--- NOTE | 2017-08-29 14:21 | CRNA.PROGR ---
Anesthesia Time - - Start date: 08/29/17 End date: 08/29/17 - Procedure/Recovery Time Anesthesia : Time In: 12:44 Anesthesia : Time Out: 14:11 Anesthesia : Total Time: 87 - Total Anesthesia Time Total Anesthesia Time (minutes): 87 - Other Weight: 115.757 kg Height: 5 ft 8 in Body Mass Index (BMI): 38.7 Physical Status: P2 Anesthesia Type: General Anesthesia : ET
--- NOTE | 2017-08-29 14:34 | GEN.OPNOTE ---
Operative Note Surgery Date: 08/29/17 Preoperative Diagnosis: Wound dehiscence status post laparotomy for abscess with small bowel resection for small bowel perforation. Postoperative Diagnosis: Same. Procedure: Reopening of recent laparotomy. Suture removal. Surgeon: Timothy Arriola MD Wireless Development Manager: Jeremy Flor MD Anesthesia Provider: Pablo Lopez CRNA Anesthesia Type: General Estimated Blood Loss (mL): 5 Fluids: 1 g of IV Invanz. 1000 mL of crystalloid. Indications: Wound dehiscence. Small bowel exposed. Findings: Saponification of the fascia throughout the entire wound. Upper and lower sutures were intact. Dense adhesions to the small bowel. It exposed small bowel. Fascial separation of roughly 3 inches throughout the extent of the wound. Complications: No intraoperative complications. Operative Summary: The patient was taken to the operating suite and placed on the operating table in the supine position. A surgical timeout was done. The abdomen was prepped and draped in a sterile fashion. The Prolene sutures were widely spaced across the length of the incision where they had intermittently pulled through the fascia.. Knots and sutures were intact. The fascia was saponified. All suture material was removed. I trimmed a little bit of the saponified fascia back. I was able to get a small amount of free space but in essence the patient had a concrete abdomen. Rather than risking extensive small bowel resection or an enterocutaneous fistula I decided to complete the procedure at this point. I called the [facility]. I spoke to Dr. Rivero. In this patient's best interest is transfer to a tertiary care center. Dr. Rivero has accepted the patient. I regowned and gloved. A 1010 drape with perforations was placed over the small bowel and lining the wound. Surgical towels which were moistened were placed on top of the 1010 sheeting. Rj-Carrera drains were placed into the towels. All was covered with Ioband dressing. The operation was terminated at this point. Arrangements are being made for air transfer to [facility] to the surgical trauma unit. The patient will be extubated and awakened. She was stable throughout the procedure.
[2017-08-29 14:52] VITALS: RESP 14
[2017-08-29 15:02] VITALS: BP 118/64; TEMP 97.4; O2SAT 93
--- NOTE | 2017-08-29 15:02 | DCSUMMARY ---
Hospitalization Summary Admit Date: 08/20/2017 Discharge Date: 08/29/17 Hospital Course: Transfer diagnoses 1. Wound dehiscence status post laparotomy for abdominal abscess with small bowel resection for small bowel perforation 2. Perforated small bowel and intra-abdominal abscess status post small bowel resection with primary anastomosis, lysis of adhesion on 08/20/2017 3. Recent hysterectomy that was complicated by a small bowel perforation needed small bowel resection 4. History of hypothyroidism 5. History of asthma 6. History of fibromyalgia 7. Chronic pain syndrome Hospital course This is a 47 years old female with medical history significant for history of hypothyroidism, fibromyalgia and chronic pain syndrome who had recent hysterectomy that was complicated by bowel perforation that needed resection with reanastomosis who presented few days post discharge for that admission with abdominal pain and draining of stool through the vagina. A CT scan done emergently showed large intra-abdominal abscess along with new small bowel perforation. She was taken to surgery the abscesses were drained and washed out, she had lysis of adhesion and small bowel resection with reanastomosis. Postsurgery she was admitted to the ICU initially she was hypotensive, tachycardic she responded to fluid resuscitation. She was treated with antibiotics with Invanz. Later on Diflucan was added with Flagyl to her course. The Reason was her white count initially went down and then started to go up. Apparently there was some pus in the wound so the wound sutures were removed and dressing changes were started. She had measurement for the wound VAC by the device was not delivered yet. it Was noted the day before that there was some loosening of the deep sutures and the patient was kept in the hospital. Her white count today was 10.7 she did not have symptoms actually she was feeling better. However reexamination of the wound today by Dr. Arriola showed dehiscence in the upper part of the wound so Dr. Arriola took her to surgery. The finding was the saponification of the fascia throughout the entire wound. Upper and lower sutures were intact. Dense adhesions of the small bowel. It exposed the small bowel. Fascial separation of roughly 3 inches throughout the extent of the bowel. Please see the notes of Dr. Arriola. Dr. Arriola apparently spoke with Dr. Fleming of [facility] and patient was accepted there and will be transferred there. Dr. Arriola asked me to help with the discharge summary for this patient. Laboratory Results 08/29/17 08/29/17 Range/Units 05:06 05:06 WBC 10.73 (4.8-10.8) 10^3/uL RBC 3.39 L (4.20-5.40) 10^6/uL Hgb 9.3 L (12.0-16.0) g/dL Hct 29.6 L (37.0-47.0) % MCV 87.3 (81-99) FL MCH 27.4 (27-31) PG MCHC 31.4 L (33-37) g/dL RDW Std Deviation 48.9 (39-50) fL RDW Coeff of Anne 16.4 H (11.5-14.5) % Plt Count 402 H (140-350) 10*3/uL MPV 8.7 (7.4-12.2) FL Immature Gran % (Auto) 1.3 (0-5) % Neut % (Auto) 69.1 (50-80) % Lymph % (Auto) 17.2 (10-50) % Evans % (Auto) 10.3 (5-15) % Eos % (Auto) 1.7 (0-8) % Baso % (Auto) 0.4 (0-1) % Immature Gran # (Auto) 0.14 10*3/UL Neut # (Auto) 7.42 10*3/UL Lymph # (Auto) 1.85 10*3/uL Evans # (Auto) 1.10 H (0.3-0.8) 10*3/UL Eos # (Auto) 0.18 10*3/UL Baso # (Auto) 0.04 10*3/UL WBC Morphology Comment Normal morphology (NORM) Plt Morphology Comment Normal morphology (NORM) RBC Morph Comment Normal morphology (NORM) Sodium 139 (135-145) meq/L Potassium 3.9 (3.8-5.2) meq/L Chloride 102 (98-112) meq/L Carbon Dioxide 27 (23-33) meq/L Anion Gap 10 (5-20) BUN 3 L (7-22) mg/dL Creatinine 0.5 (0.50-1.20) mg/dL Estimated GFR > 60 (>60 ml/min/1.73m(2)) BUN/Creatinine Ratio 6.00 (6-20) Glucose 99 (78-110) mg/dL Calculated Osmolality 284.0 (267-292) mOsm/kg Calcium 7.7 L (8.7-10.7) mg/dL Discharge instruction Please see the orders of Dr. Arriola. Exam - Vitals Vital Signs: Vital Signs Temperature 97.4 F Temperature Source Temporal Artery Scan Pulse Rate [Apical] 100 Pulse Rate [Telemetry] 90 Pulse Rate [Pulse Oximeter] 95 Pulse Rate 111 Respiratory Rate [Buttock] 18 Respiratory Rate [Abdomen] 16 Respiratory Rate 14 Blood Pressure [Left Arm] 103/57 Blood Pressure [Right Arm] 109/70 Blood Pressure 118/64 Pulse Ox 93 Oxygen Flow Rate [Buttock] 2 Oxygen Flow Rate [Abdomen] 2 Oxygen Flow Rate 3 Oxygen Delivery Method Room Air Height 5 ft 8 in Weight 255 lb 3.2 oz Patient Problems - Patient Problem List (1) Hypothyroidism Status: Chronic Qualifiers: Hypothyroidism type: acquired Qualified Code(s): E03.9 - Hypothyroidism, unspecified Category: Medical (2) Intra-abdominal abscess post-procedure Status: Acute Code(s): T81.4XXA - Infection following a procedure, initial encounter; K65.1 - Peritoneal abscess Qualifiers: Encounter type: initial encounter Qualified Code(s): T81.4XXA - Infection following a procedure, initial encounter; K65.1 - Peritoneal abscess Category: Medical (3) Leg swelling Status: Acute Code(s): M79.89 - Other specified soft tissue disorders Category: Medical
[2017-08-30] MEDS ORDERED: LEVOTHYROXINE 75 MCG TABLET PO SCH (05:30)
== END 2017-08-29 15:20 | disposition short-term general hospital (02) | DRG 907 ==
LOC: CT 10:15 → OPS 14:00 → MED/SURG 14:21 → OPS 15:11 → MED/SURG 20:29 → ICU 20:30 → MED/SURG 08-24 07:45 → OPS 08-29 12:18
PROVIDERS: ADMIT Surgery; ATTEND Internal Medicine